=== PATIENT | male | born 1970 | race Caucasian/White ===

== ENCOUNTER 2017-08-21 19:38 | Inpatient (IN) ==
[2017-08-21] MEDS ORDERED: SALINE FLUSH 10ml SYRINGE IVF PRN (19:39)
--- NOTE | 2017-08-21 19:40 | Emergency Department Report ---
Psych HPI - General Stated Complaint: Overdose Time Seen by Provider: 08/21/17 19:39 Source: patient, EMS Mode of arrival: ambulatory Limitations: no limitations - History of Present Illness HPI Narrative: Patient has significant schizoaffective disorder bipolar type depression. History of suicide attempts in the past. Patient spent March, April, and May inpatient [facility], and then was transferred to a [facility] here in [place]. Patient had his lithium dose "recently reduced," and since that time has been having more significant audible hallucinations, and tonight, patient had finally had enough, and took medication to try to kill himself.. Past several days. Tonight the patient took a total of 1100 mg of Seroquel, and [id number] mg of Soma. This all happened at 6:45 PM, and by 7:15 EMS was activated charcoal. Currently the patient states that he just feels shaky but the auditory hallucinations have resolved, and patient does not want to harm himself currently.. - Related Data Home Medications Medication Instructions Recorded Confirmed Benztropine Mesylate 0.5 mg PO BID 08/21/17 08/21/17 Cholecalciferol (Vitamin D3) 1,000 unit PO DAILY 08/21/17 08/21/17 [Vitamin D3] Cyanocobalamin (Vitamin B-12) 1,000 mcg PO DAILY 08/21/17 08/21/17 [Vitamin B-12] Lamotrigine [Lamictal] 100 mg PO BID 08/21/17 08/21/17 Parker Strip Carbonate [Parker Strip 450 mg PO DAILY 08/21/17 08/21/17 Carbonate ER] Methocarbamol [Robaxin] 500 mg PO QID PRN 08/21/17 08/21/17 Quetiapine [Seroquel] 100 mg PO HS 08/21/17 08/21/17 hydrOXYzine pamoate [Vistaril] 1 cap PO BID 08/21/17 08/21/17 lamoTRIgine [Lamotrigine] 25 mg PO BID 08/21/17 08/21/17 Allergies Allergy/AdvReac Type Severity Reaction Status Date / Time No Known Allergies Allergy Verified 08/21/17 20:00 Review of Systems All systems: reviewed and negative except as stated PFSH Depression Schizoaffective, Bipolar type, with psychotic features Hx of suicide attempts in past. Spent 3mo in [place] HTN - Social History Smoking status: Never smoker Substance use type: does not use Alcohol intake frequency: does not drink Physical Exam - Limitations Limitations: no limitations - General General appearance: alert - Normal Exams: Head:: Normocephalic without trauma Eyes:: Pupils are PERRLA w/ EOMI, No scleral icterus, irritation, or foreign bodies noted ENMT:: No facial trauma, nasal exudates, pharyngeal erythema, or exudates are noted Neck:: Full range of motion, without adenopathy, JVD, bruits or thyromegaly Chest/Respirations:: Clear all ferraro, with good airflow, and symmetry bilaterally Cardiovascular:: Regular rate and rhythm, without murmur or gallop, Pulses 2+ all extremities, capillary refill, <2 seconds all extremities Abdomen:: Bowel sounds positive, soft, non-tender, non-distended, no hepatosplenomegaly, masses or bruits noted Lymphatic:: No lymphadenopathy, or lymphedema noted Musculoskeletal:: No tenderness, or deformity noted, good range of motion, all extremities Integumentary:: No rashes, hives, or bruising noted, hair and nails, without abnormality Neurological:: Patient is alert, and oriented, cranial nerves, motor/sensory/ cerebellar, exams w/o gross deficits, to observation - Psychiatric Psychiatric exam: Present: other (flat affect, mildly shaky, but cooperative) Course Vital Signs Temperature 97.4 F 08/21/17 19:38 Pulse Rate 132 H 08/21/17 19:38 Respiratory Rate 16 08/21/17 19:38 Blood Pressure 114/61 08/21/17 19:38 Pulse Oximetry 96 08/21/17 19:38 Temperature 97.4 F 08/21/17 19:38 Pulse Rate 132 H 08/21/17 19:38 Respiratory Rate 16 08/21/17 19:38 Blood Pressure 114/61 08/21/17 19:38 Pulse Oximetry 96 08/21/17 19:38 Psych - MDM Narrative Medical decision making narrative: EKG shows sinus tachycardia without ischemia or infarction. CBC, CMP normal, salicylates and Tylenol negative, EtOH negative, Drug screen positive only for tricyclics. Patient has remained stable, although tachycardic in the ER. Case is discussed with Dr. Edward Vela, patient be admitted to ICU for suicide attempt with Seroquel and Soma overdose. After I discussed the case with Dr. Vela, patient was somewhat agitated as he felt like he had heard people talking about him and the nurse's desk, speaking disrespectful things about him, and that we were angry with him. In reality we were not speaking about the patient, and this appears to be his paranoia associated with his schizoaffective. I reassured the patient that in no way meant disrespecting him, but that we had to share his medical details admitting physician, and although he would like to go home, he was instructed this was not an option due to his suicide attempt. Patient states that he except that explanation and will "wait patiently." - Lab Data Result diagrams: 08/21/17 20:09 08/21/17 20:09 Lab Results 08/21/17 08/21/17 08/21/17 Range/Units 20:00 20:00 20:09 WBC 9.3 (4.5-11.0) T/MM3 RBC 5.36 (4.50-5.90) M/MM3 Hgb 16.9 (13.5-17.5) GM/DL Hct 50.1 (41-53) % MCV 93.5 (80-100) UM3 MCH 31.5 (26-34) UUG MCHC 33.7 (31-37) GM/DL RDW Std Deviation 45.0 (36.9-50.2) FL Plt Count 211 (130-400) T/MM3 MPV 11.3 (9.4-12.4) UM3 Immature Gran % (Auto) 0.3 (0.0-0.5) % Neut % (Auto) 56.8 (33-66) % Lymph % (Auto) 32.7 (23-45) % [place] % (Auto) 5.7 (0-9.0) % Eos % (Auto) 3.6 (0-4) % Baso % (Auto) 0.9 (0-2) % Neut # (Auto) 5.3 (1.8-7.7) T/MM3 Lymph # (Auto) 3.0 (1-4.8) T/MM3 [place] # (Auto) 0.5 (0-0.8) T/MM3 Eos # (Auto) 0.3 (0-0.5) T/MM3 Baso # (Auto) 0.1 (0-0.2) T/MM3 Abs Immat Gran (auto) 0.03 (0.00-0.03) T/MM3 Turbidity (0-20) Sodium (134-144) MEQ/L Potassium (3.6-5) MEQ/L Chloride (98-107) MEQ/L Carbon Dioxide (22-30) MEQ/L Anion Gap (5-15) MEQ/L BUN (9-20) MG/DL Creatinine (0.8-1.5) MG/DL GFR Calculation BUN/Creatinine Ratio (6-26) RATIO Glucose (75-110) MG/DL Calculated Osmolality (261-280) MOSM/KG Calcium (8.4-10.2) MG/DL Total Bilirubin (0.20-1.30) MG/DL Icterus Index (0-7) AST (17-59) U/L ALT (21-72) U/L Alkaline Phosphatase (38-126) U/L Total Protein (6.3-8.2) G/DL Albumin (3.5-5.0) G/DL Globulin (2.4-3.6) G/DL Albumin/Globulin Ratio (1.1-2.2) RATIO Specimen Hemolysis (0-25) Ur Collection Type Urine, clean catch Urine Color Yellow (YELLOW) Urine Clarity Clear Urine pH 6.0 (5.0-8.0) Ur Specific Junction <=1.005 L (1.015-1.025) Urine Protein Negative (NEGATIVE) Urine Glucose (UA) Negative (NEGATIVE) Urine Ketones Negative (NEGATIVE) Urine Occult Blood Negative (NEGATIVE) Urine Nitrate Negative (NEGATIVE) Urine Bilirubin Negative (NEGATIVE) Urine Urobilinogen 0.2 (NORMAL) EU/DL Ur Leukocyte Esterase Negative (NEGATIVE) Urinalysis Comment Microscopic not ind. Salicylates (2-20) MG/DL Urine Opiates Screen Negative ng/mL Ur Oxycodone Screen Negative ng/mL Urine Methadone Screen Negative ng/mL Ur Propoxyphene Screen Negative ng/mL Acetaminophen (10-30) UG/ML Ur Barbiturates Screen Negative ng/mL U Tricyclic Antidepress Positive ng/mL Ur Phencyclidine Scrn Negative ng/mL Ur Amphetamines Screen Negative ng/mL U Methamphetamines Scrn Negative ng/mL U Benzodiazepines Scrn Negative ng/mL Urine Cocaine Screen Negative ng/mL U Cannabinoids Screen Negative ng/mL Alcohol, Quantitative (<10) MG/DL 08/21/17 Range/Units 20:09 WBC (4.5-11.0) T/MM3 RBC (4.50-5.90) M/MM3 Hgb (13.5-17.5) GM/DL Hct (41-53) % MCV (80-100) UM3 MCH (26-34) UUG MCHC (31-37) GM/DL RDW Std Deviation (36.9-50.2) FL Plt Count (130-400) T/MM3 MPV (9.4-12.4) UM3 Immature Gran % (Auto) (0.0-0.5) % Neut % (Auto) (33-66) % Lymph % (Auto) (23-45) % [place] % (Auto) (0-9.0) % Eos % (Auto) (0-4) % Baso % (Auto) (0-2) % Neut # (Auto) (1.8-7.7) T/MM3 Lymph # (Auto) (1-4.8) T/MM3 [place] # (Auto) (0-0.8) T/MM3 Eos # (Auto) (0-0.5) T/MM3 Baso # (Auto) (0-0.2) T/MM3 Abs Immat Gran (auto) (0.00-0.03) T/MM3 Turbidity < 20 (0-20) Sodium 145 H (134-144) MEQ/L Potassium 3.7 (3.6-5) MEQ/L Chloride 106 (98-107) MEQ/L Carbon Dioxide 25 (22-30) MEQ/L Anion Gap 14 (5-15) MEQ/L BUN 9.0 (9-20) MG/DL Creatinine 0.8 (0.8-1.5) MG/DL GFR Calculation 105 BUN/Creatinine Ratio 11 (6-26) RATIO Glucose 134 H (75-110) MG/DL Calculated Osmolality 280 (261-280) MOSM/KG Calcium 9.6 (8.4-10.2) MG/DL Total Bilirubin 0.40 (0.20-1.30) MG/DL Icterus Index < 2 (0-7) AST 24 (17-59) U/L ALT 34 (21-72) U/L Alkaline Phosphatase 72 (38-126) U/L Total Protein 8.0 (6.3-8.2) G/DL Albumin 4.6 (3.5-5.0) G/DL Globulin 3.4 (2.4-3.6) G/DL Albumin/Globulin Ratio 1.4 (1.1-2.2) RATIO Specimen Hemolysis < 15 (0-25) Ur Collection Type Urine Color (YELLOW) Urine Clarity Urine pH (5.0-8.0) Ur Specific Junction (1.015-1.025) Urine Protein (NEGATIVE) Urine Glucose (UA) (NEGATIVE) Urine Ketones (NEGATIVE) Urine Occult Blood (NEGATIVE) Urine Nitrate (NEGATIVE) Urine Bilirubin (NEGATIVE) Urine Urobilinogen (NORMAL) EU/DL Ur Leukocyte Esterase (NEGATIVE) Urinalysis Comment Salicylates < 1.0 L (2-20) MG/DL Urine Opiates Screen ng/mL Ur Oxycodone Screen ng/mL Urine Methadone Screen ng/mL Ur Propoxyphene Screen ng/mL Acetaminophen < 10 L (10-30) UG/ML Ur Barbiturates Screen ng/mL U Tricyclic Antidepress ng/mL Ur Phencyclidine Scrn ng/mL Ur Amphetamines Screen ng/mL U Methamphetamines Scrn ng/mL U Benzodiazepines Scrn ng/mL Urine Cocaine Screen ng/mL U Cannabinoids Screen ng/mL Alcohol, Quantitative <10 (<10) MG/DL Disposition Clinical Impression: Suicide attempt by multiple drug overdose Qualifiers: Encounter type: initial encounter Qualified Code(s): T50.902A - Poisoning by unspecified drugs, medicaments and biological substances, intentional self-harm , initial encounter Disposition: [facility] Condition: Stable Prescriptions: No Action lamoTRIgine [Lamotrigine] 25 mg PO BID Lamotrigine [Lamictal] 100 mg PO BID Benztropine Mesylate 0.5 mg PO BID Cyanocobalamin (Vitamin B-12) [Vitamin B-12] 1,000 mcg PO DAILY Methocarbamol [Robaxin] 500 mg PO QID PRN PRN Reason: Prn Orders Parker Strip Carbonate [Parker Strip Carbonate ER] 450 mg PO DAILY Quetiapine [Seroquel] 100 mg PO HS hydrOXYzine pamoate [Vistaril] 1 cap PO BID Cholecalciferol (Vitamin D3) [Vitamin D3] 1,000 unit PO DAILY - Seen By: physician
--- OUTSIDE RECORDS SUMMARY | 2017-08-21 19:46 | External Medical Summary ---
:1970 Author Name GENERATED, SYSTEM Care Team Providers Name Role Phone UNASSIGNED DOCTOR MD NEHA DOCTOR Primary Care Provider [phone] Reason For Visit Reason for Visit from 02/26/2017 12:01 PM:Pt Stated Reason for Adm : "I'm going insane."Reason for Visit from 02/22/2017 10:51 AM:Pt Stated Reason for Adm : "I'm going insane."Reason for Visit from 02/21/2017 10:20 PM:Pt Stated Reason for Adm : "I'm going insane." Chief Complaint UNSPECIFIED SCHIZOPHRENIA Social History Social History from 02/26/2017 12:01 PM:Tobacco Use? : Current Everyday SmokerSocial History from 02/22/2017 10:51 AM:Tobacco Use? : Current Everyday SmokerSocial History from 02/21/2017 10:20 PM:Tobacco Use? : Current Everyday Smoker Functional Status Functional Status from 02/26/2017 8:20 AM:LOC : AlertOriented To : Person,Place, Time,EventWeight Bearing Status : FullAssist Level : Independent# Assists : IndependentFunctional Status from 02/25/2017 8:32 PM:LOC : AlertOriented To : Person,Place,Time,EventWeight Bearing Status : FullAssist Level : Independent# Assists : IndependentFunctional Status from 02/25/2017 9:35 AM:LOC : AlertOriented To : Person,Place,Time,EventWeight Bearing Status : FullAssist Level : Independent# Assists : IndependentFunctional Status from 02/24/2017 9:08 PM:LOC : AlertOriented To : Person,Place,Time,EventWeight Bearing Status : FullAssist Level : Independent# Assists : IndependentFunctional Status from 2016 10:10 AM:LOC : AlertOriented To : Person,Place,Time,EventWeight Bearing Status : FullAssist Level : Independent# Assists : IndependentFunctional Status from 02/23/2017 9:42 PM:LOC : AlertOriented To : Person,Place,Time,EventWeight Bearing Status : FullAssist Level : Independent# Assists : IndependentFunctional Status from 02/23/2017 2:07 PM:LOC : AlertOriented To : Person,Place,Time,EventWeight Bearing Status : FullAssist Level : Independent# Assists : IndependentFunctional Status from 02/22/2017 8:25 PM:LOC : AlertOriented To : Person,Place,Time,EventWeight Bearing Status : FullAssist Level : Independent# Assists : IndependentFunctional Status from 02/22/2017 9:00 AM:LOC : AlertOriented To : Person,Place,TimeWeight Bearing Status : FullAssist Level : Independent# Assists : IndependentFunctional Status from 02/21/2017 10:20 PM:LOC : AlertOriented To : Person,Place,Time,EventWeight Bearing Status : FullAssist Level : Independent# Assists : Independent Vital Signs Hospital Vital Signs from 02/26/2017 8:48 AM:Weight : 196/ lbs,ozHeight : 5/8 ft, inHospital Vital Signs from 02/26/2017 6:20 AM:Height : 5/8 ft,inTemperature : 98.6 FPulse : 80Respirations : 16BP : 113/83Hospital Vital Signs from 02/25/2017 6 :33 AM:Height : 5/8 ft,inTemperature : 100.0 FPulse : 65Respirations : 18BP : 120/75Hospital Vital Signs from 02/24/2017 6:24 AM:Height : 5/8 ft,inTemperature : 98.2 FPulse : 91Respirations : 20BP : 120/77Hospital Vital Signs from 2016 6:28 AM:Height : 5/8 ft,inTemperature : 98.5 FPulse : 63Respirations : 18BP : 120/80Hospital Vital Signs from 02/22/2017 5:12 PM:Height : 5/8 ft, inTemperature : 100.7 FPulse : 58Respirations : 14BP : 113/55Hospital Vital Signs from 02/22/2017 7:56 AM:Height : 5/8 ft,inHospital Vital Signs from 2016 6:22 AM:Height : 5/8 ft,inTemperature : 98.8 FPulse : 74Respirations : 18BP : 120/84Hospital Vital Signs from 02/21/2017 10:20 PM:Weight : 91.8/ kgHeight : 5/8 ft,inHospital Vital Signs from 02/21/2017 9:53 PM:Weight : 91.8/ kgHeight : 5/8 ft,inTemperature : 98.2 FPulse : 91Respirations : 18BP : 125/94 Results Chemistry from 02/22/2017 7:15 AMGLUCOSE (FASTING)94 MG/DL (65-99 MG/DL) Problems Encounter Diagnosis Mood Disorder Status:Active.Additional Problems Dyspnea Comment:Problem resolved by [facility] [employer] upon Discharge, Status: Resolved. Encounters Encounter Diagnosis Mood Disorder Status:Active. Plan of Care Follow-up Appointments from 02/26/2017 12:01 PM:#1 Office appointment: : [facility] from 02/26/2017 11:20 AM:#1 Office appointment: : [facility] from 02/26/2017 10:34 AM:#1 Office appointment: : Per [facility] Procedures No relevant procedures performed. Immunizations No immunizations administered or ordered. Hospital Course Hospital Discharge Instructions How to care for yourself at home from 02/26/2017 12:01 PM:Discharge Activity : Activity as toleratedDischarge Diet : As before hospitalizationCall your doctor if: : Fever over 101 F or severe chills,Chest pain or other unexplained symptoms ,Tingling or numbness develops,A sudden increase or decrease in weight,You have persistent or worsening symptoms Allergies, Adverse Reactions, Alerts This section is passenger service representative of the current allergy information, at the time of the CCD generation. In the case of regeneration of the CCD, the allergy information may not reflect the state of known allergies at the time of the CCD' s subject visit. No Latex Allergy.No IV Contrast Allergy.No Known Drug Allergies. Medication It is the responsibility of the patient or patient passenger service representative to confirm the list of medicationswith either the patient's personal care provider or the patient's follow-up care provider to ensure the patient has an appropriate list of medications to take at home. Discharge medicationsNew medicationsdocusate sodium 100 mg Capsule, Ordered By: SALINAS BELLAMY, PAC Directions: 1 capsule oral daily PRN CONSTIPATION LORazepam 1 mg Tablet, Ordered By: SALINAS BELLAMY, PAC Directions: 1 tablet oral every eight hours PRN ANXIETY nicotine (polacrilex) (Nicorelief) 2 mg Gum, Ordered By: KARTHIK DAHL Directions: 1 gum oral daily PRN SMOKING CESSATION Additional Instructions: DO NOT GIVE IF PATIENT UNDER AGE 18 OR . Continued medicationsdoxepin 75 mg Capsule, Ordered By: KARTHIK DAHL Directions: 1 capsule oral daily at bedtime for insomnia DULoxetine (Cymbalta) 30 mg capsule,delayed release(DR/EC), Ordered By: KARTHIK DAHL Directions: 1 capsule oral daily for depression paliperidone (Invega) 9 mg tablet extended release 24hr, Ordered By: KARTHIK DAHL Directions: 1 tablet oral daily for psychosis Changed medicationslithium carbonate 450 mg Tablet Extended Release, Ordered By : KARTHIK DAHL Directions: 1 tablet oral daily with dinner for mood stabilization Stopped medicationsbusPIRone 15 mg Tablet Directions: 1 tablet oral twice a day for anxiety pantoprazole (ProTONIX) 40 mg tablet,delayed release (DR/EC) Directions: 1 tablet oral daily for dyspepsia benztropine 0.5 mg Tablet Directions: 1 tablet oral twice a day for EPS
--- OUTSIDE RECORDS SUMMARY | 2017-08-21 19:46 | External Medical Summary | Summary of Care ---
:1970 Author Name Vikas Pratt M.D. Address Unavailable Unavailable , Care Team Providers Name Role Phone Vikas Pratt M.D. Unavailable Unavailable Beny Pratt Unavailable Unavailable Unavailable Unavailable Unavailable Functional Status Functional Status Health Issues Name Dates Details Functional status health issues are not documented Status: Cognitive Status Health Issues Name Dates Details Cognitive status health issues are not documented Status: Problems Name Dates Details Dysuria (788.1, R30.0) Status: Active Rheumatoid arthritis (714.0, M06.9) Status: Active Hypercholesterolemia (272.0, E78.00) Status: Active Hypertension, essential, benign (401.1, I10) Status: Active Schizoaffective disorder (295.70, F25.9) Status: Active Bipolar disorder (296.80, F31.9) Status: Active Medications Name Dates Details DULoxetine HCl - 30 MG Oral Capsule Delayed Release Particles TAKE 1 CAPSULE Every morning Refills: 0 Start 13-Jun-2016 Active DULoxetine HCl - 60 MG Oral Capsule Delayed Release Particles TAKE 1 CAPSULE AT BEDTIME. Refills: 0 Start 13-Jun-2016 Active HydrOXYzine Pamoate 25 MG Oral Capsule TAKE 1 CAPSULE 1-3 TIMES DAILY. Refills: 0 Start 13-Jun-2016 Active Haloperidol 10 MG Oral Tablet TAKE 1 TABLET TWICE DAILY. Refills: 0 Start 13-Jun-2016 Active Benztropine Mesylate 1 MG Oral Tablet TAKE 2 TABLET Twice daily Refills: 0 Start 13-Jun-2016 Active Lisinopril 10 MG Oral Tablet TAKE 1 TABLET Every morning for BP Quantity: 1 Refills: 0 Beny Pratt M.D. K Start 13-Jun-2016 Active 45 Tablet Bottle Allergies and Adverse Reactions Name Dates Details No Known Drug Allergies (Allergy) Status: Active Past Medical History Name Dates Details History of colonic polyps (V12.72, Z86.010) Status: Resolved History of peptic ulcer (V12.71, Z87.11) Status: Resolved Procedures Procedure Dates Details Hep C Virus Antibody [id number] Ordered: 13-Jun-2016 Immunization Name Dates Details Immunizations not documented Family History uncle Name Dates Details Family history of Melanoma (172.9, C43.9) Status: Active Mother Name Dates Details Family history of hypertension (V17.49, Z82.49) Status: Active Family history of diabetes mellitus (V18.0, Z83.3) Status: Active Family history of hyperlipidemia (V18.19, Z83.49) Status: Active Family history of Melanoma (172.9, C43.9) Status: Active Social History Name Dates Details - Status: Smoking Status Name Dates Details Current every day smoker Vital Signs Date Test Result Details 13-Jun-2016 11:14 BP Systolic 146 mm[Hg] Status: Comments: Location: ; Position: BP Diastolic 94 mm[Hg] Status: Comments: Location: ; Position: Heart Rate 104 /min Status: Comments: Location: ; Height 68 in Status: Weight 220 lb Status: Body Mass Index Calculated 33.45 kg/m2 Status: Body Surface Area Calculated 2.13 m2 Status: Results Date Description Value Details 13-Jun-2016 11:58 HEMOGRAM 7305 Comments: Fastin hours WBC 11.1 K/uL (Above high threshold) Range: 4.5-11.0 RBC 5.37 mil/uL Range: 4.20-5.40 HGB 17.9 g/dL Range: 14.0-18.0 HCT 50.4 % Range: 42.0-53.0 MCV 93.7 fL Range: 80.0-99.0 MCH 33.3 pg (Above high threshold) Range: 27.3-32.5 MCHC 35.5 % Range: 32.0-36.0 PLATELETS 226 K/uL Range: 150-400 12:00 Urinalysis, Reflex to Microscopic or Culture PRN Comments: Fastin hours 8005 pH 6.0 Range: 5.0-7.5 SP GRAVITY <=1.005 (Abnormal) Range: 1.010-1.030 APPEARANCE CLEAR Range: Clear COLOR YELLOW Range: Straw-Yellow PROTEIN NEGATIVE mg/dL Range: Negative-Trace GLUCOSE NEGATIVE mg/dL Range: Negative KETONE NEGATIVE mg/dL Range: Negative BILIRUB NEGATIVE Range: Negative BLOOD NEGATIVE Range: Negative UROBIL 0.2 EU/dL Range: 0.2-1.0 NITRITE NEGATIVE Range: Negative LEUK NEGATIVE Range: Negative 12:32 BASIC METABOLIC PROFILE 1210 Comments: Fastin hours SODIUM 138 mmol/L Range: 133-144 POTASSIUM 3.5 mmol/L Range: 3.5-5.1 CHLORIDE 100 mmol/L Range: 98-110 CARBON DIOXIDE 27.9 mmol/L Range: 23.0-33.0 ANION GAP 10 mmol/L Range: 6-16 BUN 3 mg/dL (Below low Range: 7-18 threshold) CREATININE, SERUM 0.78 mg/dL Range: 0.70-1.30 EST GFR, >60 ml/min Range: >60 EST GFR, NON-AFR HUNGARIAN >60 ml/min Range: >60 Comments: EST GFR is reported in ml/min per 1.73 m2 of body surface area. ----- BUN:CREATININE RATIO 4 GLUCOSE 83 mg/dL Range: 70-100 CALCIUM 9.1 mg/dL Range: 8.5-10.1 12:32 LIPID PROFILE 1184 Comments: Fastin hours CHOLESTEROL 182 mg/dL Range: <200 TRIGLYCERIDES 151 mg/dL Range: 30-200 HDL Cholesterol 37 mg/dL (Below low threshold) Range: >39 NON HDL CHOLESTEROL 145 CARDIAC RSK FACTOR 4.9 units Range: 4.4-5.0 LDL - CALCULATED 115 mg/dL Range: 0-130 Plan of Care Name Dates Details Planned Observations Planned Goals not documented Planned Encounters Appointment; Provider: Beny Pratt M.D. On 27-Jun-2016 09:00 Interventions Provided Medication ChangesLisinopril 10 MG Oral Tablet - StartLabs/Procedures/Imaging Hep C Virus Antibody [id number]; To be Done: 13 Jun 2016 Instructions Name Dates Details Instructions not documented Encounters Appointment; Beny Pratt M.D. On 13-Jun-2016 Encounter Diagnosis: Problem not documented 11:15
--- OUTSIDE RECORDS SUMMARY | 2017-08-21 19:46 | External Medical Summary ---
:1970 Author Name GENERATED, SYSTEM Care Team Providers Name Role Phone UNASSIGNED DOCTOR MD NEHA DOCTOR Primary Care Provider [phone] Reason For Visit Chief Complaint RECTAL BLEEDING Social History Functional Status Vital Signs Results Chemistry from 01/19/2017 11:03 [id number] MMOL/L (136-145 MMOL/L) POTASSIUM4.0 MMOL/L (3.5-5.1 MMOL/L) ELKQLGJU920 MMOL/L (98-107 MMOL/L) AWP547.2 MMOL/L (21.0-32.0 MMOL/L) *ANION GAP6.8 MMOL/L L (8.0-16.0 MMOL/L) BUN8 MG/DL (7-18 MG/DL) CREATININE0.93 MG/DL (0.70-1.30 MG/DL) *BUN/CREATININE RATIO8.6 L (9.1-17.0 ) UFFOCYL101 MG/DL H (65-99 MG/DL) *GFR EST NON AFR [place]>90 ML/MIN (Reference Range: not available) *GFR EST AFR AMER>90 ML/MIN (Reference Range: not available) CALCIUM8.6 MG/DL (8.5-10.1 MG/DL) BILIRUBIN TOTAL0.20 MG/DL (0.20-1.00 MG/DL) TOTAL PROTEIN6.6 GM/DL (6.4-8.2 GM/DL) ALBUMIN3.5 GM/DL (3.4-5.0 GM/DL) *GLOBULIN3.1 GM/DL (2.3-3.5 GM/DL) *A/G RATIO1.1 MG/DL L (1.5-2.2 MG/DL) ALK KEBB052 U/L H (46-116 U/L) ALT (SGPT)33 U/L (14-59 U/L) AST (SGOT)19 U/L (15-37 U/L)Hematology from 01/19/2017 11:03 PMWBC8.3 X10e3/UL ( 3.6-11.2 X10e3/UL) RBC5.01 X10e6/UL (4.06-5.63 X10e6/UL) GIEENBFFQY15.4 G/DL (12.5-16.3 G/DL) VUYDAHVTUE09.7 % (36.7-47.1 %) *MCV91.2 FL (80.0-100.0 FL) *MCH30.8 PG (27.0-33.0 PG) *MCHC33.7 G/DL (32.0-36.0 G/DL) *RDW13.0 % (12.3-17.0 %) UMDECFSF569 X10e3/UL (159-386 X10e3/UL) *MPV9.6 FL (7.4-10.4 FL) AUTOMATED DIFFPERFORMED (Reference Range: not available) SEGS55.9 % (Reference Range: not available) *QEKSNQWSLHW82.5 % (Reference Range: not available) *MONOCYTES7.1 % (Reference Range: not available) *EOSINOPHILS4.7 % (Reference Range: not available) *BASOPHILS0.8 % (Reference Range: not available) *ABSOLUTE NEUTROPHILS4.60 X10e3/UL (1.80-7.80 X10e3/UL) *ABSOLUTE LYMPHOCYTES2.60 X10e3/UL (1.00-3.00 X10e3/UL) *ABSOLUTE MONOCYTES0.60 X10e3/UL (0.30-1.00 X10e3/UL) *ABSOLUTE EOSINOPHILS0.40 X10e3/UL (0.00-0.50 X10e3/UL) *ABSOLUTE BASOPHILS0.10 X10e3/UL (0.00-0.20 X10e3/UL)Coagulation from 01/19/2017 11:02 PM*PROTHROMBIN TIME10.9 SECONDS (9.4-11.5 SECONDS) *INR1.0 (0.9-1.1 )Body Fluids from 01/19/2017 10:45 PMFECAL OCCULT BLOOD 1 ( Hemoccult)POSITIVE A (NEGATIVE ) Problems Encounter Diagnosis No relevant problems exist. Additional Problems Dyspnea Comment:Problem resolved by [facility] Workflow upon Discharge, Status: Resolved. Encounters Encounter Diagnosis No relevant problems exist. Plan of Care Procedures No relevant procedures performed. Immunizations No immunizations administered or ordered. Hospital Course Hospital Discharge Instructions Allergies, Adverse Reactions, Alerts This section is vendor representatives of the current allergy information, at the time of the CCD generation. In the case of regeneration of the CCD, the allergy information may not reflect the state of known allergies at the time of the CCD' s subject visit. Latex Allergy has not been assessed.IV Contrast Allergy has not been assessed.No Known Drug Allergies. Medication Medication reconciliation has not been performed.
--- OUTSIDE RECORDS SUMMARY | 2017-08-21 19:46 | External Medical Summary ---
:1970 Author Name GENERATED, SYSTEM Care Team Providers Name Role Phone UNASSIGNED DOCTOR MD NEHA DOCTOR Primary Care Provider [phone] Reason For Visit Chief Complaint INSOMNIA Social History Functional Status Vital Signs Results Chemistry from 01/23/2017 5:50 AM*COCAINENEGATIVE NG/ML (NEG <150 NG/ML) *PCPNEGATIVE NG/ML (NEG <25 NG/ML) *CANNABINOIDSNEGATIVE MG/DL (NEG <50 MG/DL) *BENZODIAZEINENEGATIVE NG/ML (NEG <200 NG/ML) *METHAMPHETAMINE/AMPHETAMINENEGATIVE NG/ML (NEG <500 NG/ML) *BARBITURATESNEGATIVE NG/ML (NEG <200 NG/ML) *OPIATESNEGATIVE NG/ML (NEG <300 NG/ML)Chemistry from 01/23/2017 5:37 [id number] MMOL/L (136-145 MMOL/L) POTASSIUM3.9 MMOL/L (3.5-5.1 MMOL/L) GZZCXNOB040 MMOL/L (98-107 MMOL/L) MDZ373.5 MMOL/L (21.0-32.0 MMOL/L) *ANION GAP7.5 MMOL/L L (8.0-16.0 MMOL/L) BUN9 MG/DL (7-18 MG/DL) CREATININE0.82 MG/DL (0.70-1.30 MG/DL) *BUN/CREATININE RATIO11.0 (9.1-17.0 ) ECRPOJH820 MG/DL H (65-99 MG/DL) *GFR EST NON AFR [place]IZEN [place]>90 ML/MIN (Reference Range: not available) *GFR EST AFR AMER>90 ML/MIN (Reference Range: not available) CALCIUM8.8 MG/DL (8.5-10.1 MG/DL) BILIRUBIN TOTAL0.60 MG/DL (0.20-1.00 MG/DL) TOTAL PROTEIN7.3 GM/DL (6.4-8.2 GM/DL) ALBUMIN3.7 GM/DL (3.4-5.0 GM/DL) *GLOBULIN3.6 GM/DL H (2.3-3.5 GM/DL) *A/G RATIO1.0 MG/DL L (1.5-2.2 MG/DL) ALK WPNX561 U/L (46-116 U/L) ALT (SGPT)28 U/L (14-59 U/L) AST (SGOT)19 U/L (15-37 U/L) TSH1.256 UIU/ML (0.340-4.820 UIU/ML) ALCOHOL<0.003 GM/DL (Reference Range: not available) ACETAMINOPHEN<2 MCG/ML L (10-30 MCG/ML) LITHIUM0.3 MMOL/L L (0.6-1.2 MMOL/L) SALICYLATE5.2 MG/DL (2.8-20.0 MG/DL)Hematology from 01/23/2017 5:37 AMWBC7.9 X10e3 /UL (3.6-11.2 X10e3/UL) RBC5.18 X10e6/UL (4.06-5.63 X10e6/UL) UAJHMADSQI56.7 G/DL H (12.5-16.3 G/DL) QZEICADVGX25.4 % H (36.7-47.1 %) *MCV93.5 FL (80.0-100.0 FL) *MCH32.2 PG (27.0-33.0 PG) *MCHC34.5 G/DL (32.0-36.0 G/DL) *RDW13.7 % (12.3-17.0 %) *RDWSD44.6 (37.1-47.8 ) RLRFWJTF088 X10e3/UL (159-386 X10e3/UL) *MPV9.8 FL (7.4-10.4 FL) AUTOMATED DIFFPERFORMED (Reference Range: not available) SEGS56.2 % (Reference Range: not available) *KFATGIGEFUP76.0 % (Reference Range: not available) *MONOCYTES9.1 % (Reference Range: not available) *EOSINOPHILS3.9 % (Reference Range: not available) *BASOPHILS0.8 % (Reference Range: not available) *ABSOLUTE NEUTROPHILS4.40 X10e3/UL (1.80-7.80 X10e3/UL) *ABSOLUTE LYMPHOCYTES2.40 X10e3/UL (1.00-3.00 X10e3/UL) *ABSOLUTE MONOCYTES0.70 X10e3/UL (0.30-1.00 X10e3/UL) *ABSOLUTE EOSINOPHILS0.30 X10e3/UL (0.00-0.50 X10e3/UL) *ABSOLUTE BASOPHILS0.10 X10e3/UL (0.00-0.20 X10e3/UL)Urinalysis from 01/23/2017 5: 50 AM*URINE COLORSTRAW (STRAW/YELL/DK YELL ) *URINE APPEARANCECLEAR (CLEAR ) URINE PH6.0 (5.0-8.0 ) URINE SPECIFIC GRAVITY<1.005 (<=1.005->=1.030 ) *URINE GLUCOSENEGATIVE MG/DL (NEGATIVE MG/DL) *URINE BILIRUBINNEGATIVE (NEGATIVE ) *URINE KETONESNEGATIVE MG/DL (NEGATIVE MG/DL) *URINE BLOODNEGATIVE (NEGATIVE ) *URINE PROTEINNEGATIVE MG/DL (NEGATIVE MG/DL) *URINE UROBILINOGEN0.2 EU/DL (0.2-1.0 EU/DL) *URINE NITRITESNEGATIVE (NEGATIVE ) *URINE LEUKOCYTESNEGATIVE (NEGATIVE ) Problems Encounter Diagnosis No relevant problems exist. Additional Problems Dyspnea Comment:Problem resolved by [facility] Workflow upon Discharge, Status: Resolved. Encounters Encounter Diagnosis No relevant problems exist. Plan of Care Procedures No relevant procedures performed. Immunizations No immunizations administered or ordered. Hospital Course Hospital Discharge Instructions Allergies, Adverse Reactions, Alerts This section is transportation services representative of the current allergy information, at [...]
--- OUTSIDE RECORDS SUMMARY | 2017-08-21 19:46 | External Medical Summary ---
:1970 Author Name GENERATED, SYSTEM Care Team Providers Name Role Phone UNASSIGNED DOCTOR MD NEHA DOCTOR Primary Care Provider [phone] Reason For Visit Chief Complaint TOOTH PAIN Social History Functional Status Vital Signs Results Problems Encounter Diagnosis No relevant problems exist. Additional Problems Dyspnea Comment:Problem resolved by [facility] Workflow upon Discharge, Status: Resolved. Encounters Encounter Diagnosis No relevant problems exist. Plan of Care Procedures No relevant procedures performed. Immunizations No immunizations administered or ordered. Hospital Course Hospital Discharge Instructions Allergies, Adverse Reactions, Alerts Latex Allergy has not been assessed.IV Contrast Allergy has not been assessed.No Known Drug Allergies. Medication Medication reconciliation has not been performed.
--- OUTSIDE RECORDS SUMMARY | 2017-08-21 19:46 | External Medical Summary | Summary of Care ---
:1970 Author Name Isra Kan, Shayy Elizabeth Address [address] [place], [place] [id number] Care Team Providers Name Role Phone Isra Kan, Shayy Elizabeth Unavailable Unavailable Vikas Pratt M.D. Unavailable Unavailable Glenn Dhaliwal Unavailable Unavailable Unavailable Unavailable Unavailable Functional Status Functional Status Health Issues Name Dates Details Functional status health issues are not documented Status: Cognitive Status Health Issues Name Dates Details Cognitive status health issues are not documented Status: Problems Name Dates Details Hypercholesterolemia (272.0, E78.00) Status: Active Low HDL (under 40) (272.5, E78.6) Status: Active Hypertension, essential, benign (401.1, I10) Status: Active Low back pain (724.2, M54.5) Status: Active Bipolar disorder (296.80, F31.9) Status: Active Rheumatoid arthritis (714.0, M06.9) Status: Active Schizoaffective disorder (295.70, F25.9) Status: Active Medications Name Dates Details DULoxetine [...] 10 MG Oral Tablet TAKE 1 TABLET BY MOUTH EVERY MORNING BLOOD PRESSURE Quantity: 28 Refills: 0 Beny Pratt M.D. Start 05-Jan-2017 Active Ibuprofen 600 MG Oral Tablet TAKE 1 TABLET 3 TIMES DAILY WITH FOOD NEEDED. Quantity: 1 Refills: 2 Beny Pratt M.D. Start 27-Jun-2016 Active 30 Tablet Bottle Allergies and Adverse Reactions Name Dates Details No Known Drug Allergies (Allergy) Status: Active Past Medical History Name Dates Details History of colonic polyps (V12.72, Z86.010) Status: Resolved History of peptic ulcer (V12.71, Z87.11) Status: Resolved Procedures Procedure Dates Details CBC w/ Auto Diff 7150 Ordered: Comprehensive Metabolic Panel 1212 Ordered: LIPID PROFILE 1184 Ordered: ERYTHROCYTE SED RATE 7800 Ordered: C REACTIVE PROTEIN, CRP 2030 Ordered: RHEUMATOID FACTOR, RA, Serum 2015 Ordered: LITHIUM 1162 Ordered: Immunization Name Dates Details Influenza on: 20-May-2016 Family History uncle Name Dates Details Family [...] smoker Vital Signs Date Test Result Details 10:09 BP Systolic 136 mm[Hg] Status: Comments: Location: ; Position: BP Diastolic 84 mm[Hg] Status: Comments: Location: ; Position: Heart Rate 119 /min Status: Comments: Location: ; Weight 205 lb Status: Physical Findings 98 Status: Comments: O2 Saturation Body Mass Index Calculated 31.17 kg/m2 Status: Body Surface Area Calculated 2.07 m2 Status: Results Date Description Value Details Results not documented Plan of Care Name Dates Details Planned Observations Planned Goals not documented Instructions Name Dates Details Instructions not documented Encounters Appointment; Beny Pratt M.D. On 26-Jul-2016 Encounter Diagnosis: Problem not documented 08:00 Appointment; Beny Pratt M.D. On 27-Jun-2016 Encounter Diagnosis: Problem not documented 09:00 Appointment; Beny Pratt M.D. On 13-Jun-2016 Encounter Diagnosis: Problem not documented 11:15
--- OUTSIDE RECORDS SUMMARY | 2017-08-21 19:46 | External Medical Summary ---
:1970 Author Organization [employer] Care Team Providers Name Role Phone Destiney Patterson Provider Role Unavailable Allergies No Known Allergies Problems Problem Type Condition ICD-9 Code Onset Dates Condition Status Problem Hyperlipidemia 272.4 Active Problem Bipolar 1 disorder, mixed 296.60 Active Problem Smoker 305.1 Active Problem Obesity, unspecified 278.00 Active Problem Colon polyps 211.3 Active Problem Rheumatoid arthritis 714.0 Active Problem Asthma 493.90 Active Medications No Known Medications Results No Known Results Summary Purpose [employer] Submission
--- OUTSIDE RECORDS SUMMARY | 2017-08-21 19:46 | External Medical Summary ---
:1970 Author Name GENERATED, SYSTEM Care Team Providers Name Role Phone UNASSIGNED DOCTOR MD NEHA DOCTOR Primary Care Provider [phone] Reason For Visit Chief Complaint HEADACHE Social History Functional Status Vital Signs Results DX Radiology from 11/25/2016 9:18 PMHIP RIGHT 2 VIEWS WITH PELVISHistory: R hip pain . 46 y/o M c/o right hip pain onset 3 days [employer]. Pt reports he has rheumatoid arthritis. He was moving to stuff and thinks he over did it. Also c/o chronic intermittent headache, loss of appetite, diarrhea, cough. No nausea vomiting, SOB, abd pain, chest pain, edema. Pt also reports he threw out all of his medications when he got mad Technique: Single AP view the pelvis and two views of the right hip were obtained. Priors: None. Findings: There is no acute fracture. The hip is in normal alignment. There are no significant degenerative changes. Impression: No acute osseous abnormality. Electronically signed by: Charla Schilling MD Dictated: 11/26/2016 11:56 (Reference Range: not available) CT Scan from 11/25/2016 9:34 PMCT CEREBRAL W/O CONTRASTHistory: resendiz . 46 y/o M c/o right hip pain onset 3 days [employer] ATT[employer]. Pt reports he has rheumatoid arthritis. He was moving to stuff and thinks he over did it. Also c/o chronic intermittent headache, loss of appetite, diarrhea, cough. No nausea vomiting, SOB, abd pain, chest pain, edema. Pt also reports he threw out all of his medications when he got mad. Priors: None. Findings: Ventricles and Extra axial spaces: Normal in size and morphology for the patient's age. Hemorrhage: None. Cerebral parenchyma: Normal. Mass effect/midline shift: None. Brainstem/Cerebellum: Normal. Calvarium: Normal. Visualized Paranasal sinuses/Mastoids: There is mild mucosal thickening within the bilateral frontal, ethmoid, sphenoid sinuses with small amount of fluid within the left sphenoid and left frontal sinuses. Impression: No acute intracranial abnormality. Mild infectious/inflammatory changes of the sinuses, as described above. Electronically signed by: Charla Schilling MD Dictated: 11/26/2016 11:04 (Reference Range: not available) Problems Encounter Diagnosis No relevant problems exist. Additional Problems Dyspnea Comment:Problem resolved by [facility] Workflow upon Discharge, Status: Resolved. Encounters Encounter Diagnosis No relevant problems exist. Plan of Care Procedures No relevant procedures performed. Immunizations No immunizations administered or ordered. Hospital Course Hospital Discharge Instructions Allergies, Adverse Reactions, Alerts This section is customer relations representative of the current allergy information, at [...]
--- OUTSIDE RECORDS SUMMARY | 2017-08-21 19:47 | External Medical Summary ---
:1970 Author Name GENERATED, SYSTEM Care Team Providers Name Role Phone UNASSIGNED DOCTOR MD NEHA DOCTOR Primary Care Provider [phone] Reason For Visit Chief Complaint RT ARM INJURY Social History Functional Status Vital Signs Results Problems Encounter Diagnosis No relevant problems exist. Additional Problems Dyspnea Comment:Problem resolved by [facility] Workflow upon Discharge, Status: Resolved. Encounters Encounter Diagnosis No relevant problems exist. Plan of Care Procedures No relevant procedures performed. Immunizations No immunizations administered or ordered. Hospital Course Hospital Discharge Instructions Allergies, Adverse Reactions, Alerts This section is workforce services representative of the current allergy information, [...]
--- OUTSIDE RECORDS SUMMARY | 2017-08-21 19:47 | External Medical Summary ---
:1970 Author Name GENERATED, SYSTEM Care Team Providers Name Role Phone UNASSIGNED DOCTOR MD NEHA DOCTOR Primary Care Provider [phone] Reason For Visit Chief Complaint CHRONIC RHEUMATOID ARTHRITIS PAIN Social History Functional Status Vital Signs Results Problems Encounter Diagnosis No relevant problems exist. Additional Problems Dyspnea Comment:Problem resolved by [facility] Workflow upon Discharge, Status: Resolved. Encounters Encounter Diagnosis No relevant problems exist. Plan of Care Procedures No relevant procedures performed. Immunizations No immunizations administered or ordered. Hospital Course Hospital Discharge Instructions Allergies, Adverse Reactions, Alerts This section is technical sales representatives of the current allergy information, at [...]
--- OUTSIDE RECORDS SUMMARY | 2017-08-21 19:47 | External Medical Summary | Summary of Care ---
[...] not documented Status: Problems Name Dates Details Rheumatoid arthritis (714.0, M06.9) Status: Active Hypercholesterolemia (272.0, E78.00) Status: Active Schizoaffective disorder (295.70, F25.9) Status: Active Bipolar disorder (296.80, F31.9) Status: Active Low HDL (under 40) (272.5, E78.6) Status: Active Hypertension, essential, benign (401.1, I10) Status: Active Low back pain (724.2, M54.5) Status: Active Medications Name Dates Details DULoxetine [...] Every morning for BP Quantity: 1 Refills: 5 SantaBeny galvan M.D. Start 13-Jun-2016 Active 30 Tablet Bottle Ibuprofen 600 MG Oral Tablet TAKE 1 [...] Z87.11) Status: Resolved Procedures Procedure Dates Details Procedures not documented Immunization Name Dates Details Influenza on: 20-May-2016 [...] smoker Vital Signs Date Test Result Details 26-Jul-2016 08:23 BP Systolic 122 mm[Hg] Status: Comments: Location: ; Position: BP Diastolic 84 mm[Hg] Status: Comments: Location: ; Position: 26-Jul-2016 08:01 BP Systolic 138 mm[Hg] Status: Comments: Location: ; Position: BP Diastolic 96 mm[Hg] Status: Comments: Location: ; Position: Heart Rate 92 /min Status: Comments: Location: ; Weight 215 lb Status: Body Mass Index Calculated 32.69 kg/m2 Status: Body Surface Area Calculated 2.11 m2 Status: 27-Jun-2016 09:00 BP Systolic 130 mm[Hg] Status: Comments: Location: LUE; Position: Sitting BP Diastolic 88 mm[Hg] Status: Comments: Location: LUE; Position: Sitting Heart Rate 84 /min Status: Weight 218 lb Status: Body Mass Index Calculated 33.15 kg/m2 Status: Body Surface Area Calculated 2.12 m2 Status: Results Date Description Value Details Results not documented Plan of Care Name Dates Details Planned Observations Planned Goals not documented Planned Encounters Appointment; Provider: Beny Pratt M.D. On 24-Oct-2016 08:00 Interventions Provided Medication ChangesIbuprofen 600 MG Oral Tablet - Renew Instructions Name Dates Details Instructions not documented Encounters Appointment; Beny Pratt M.D. On 27-Jun-2016 Encounter Diagnosis: Problem not documented 09:00 Appointment; Beny Pratt M.D. On 13-Jun-2016 Encounter Diagnosis: Problem not documented 11:15
--- OUTSIDE RECORDS SUMMARY | 2017-08-21 19:47 | External Medical Summary | Summary of Care ---
[...] not documented Status: Problems Name Dates Details Hypertension, essential, benign (401.1, I10) Status: Active Dysuria (788.1, R30.0) Status: Active Medications Name Dates Details DULoxetine [...] Quantity: 1 Refills: 0 Beny Pratt M.D. Vikas Start 13-Jun-2016 Active 45 Tablet Bottle Allergies and Adverse Reactions Name Dates Details No Known Drug Allergies (Allergy) Status: Active Procedures Procedure Dates Details Hep C Virus Antibody [id number] Ordered: 13-Jun-2016 Immunization Name Dates Details Immunizations not documented Social History Smoking Status Name Dates Details Unknown if ever smoked Vital Signs Date Test Result Details 13-Jun-2016 [...] >60 ml/min Range: >60 EST GFR, NON-AFR DUTCH >60 ml/min Range: >60 Comments: EST GFR [...] Pratt M.D. On 27-Jun-2016 09:00 Interventions Provided Labs/Procedures/ImagingBASIC METABOLIC PROFILE 1210; Done: 13Jun2016 11: 53AMHEMOGRAM 7305; Done: 13Jun2016 11:53AMLIPID PROFILE 1184; Done: 13Jun2016 11 :53AMUrinalysis, Reflex to Microscopic or Culture PRN [id number]; Done: 13Jun2016 11: 54AM Instructions Name Dates Details Instructions not documented Encounters Appointment; Beny Pratt M.D. On 13-Jun-2016 Encounter Diagnosis: Problem not documented 11:15
--- OUTSIDE RECORDS SUMMARY | 2017-08-21 19:47 | External Medical Summary ---
:1970 Author Name GENERATED, SYSTEM Care Team Providers Name Role Phone UNASSIGNED DOCTOR MD NEHA DOCTOR Primary Care Provider [phone] Reason For Visit Chief Complaint TACHYCARDIA/ANXIETY Social History Functional Status Vital Signs Results Problems Encounter Diagnosis No relevant problems exist. Additional Problems Dyspnea Comment:Problem resolved by [facility] Workflow upon Discharge, Status: Resolved. Encounters Encounter Diagnosis No relevant problems exist. Plan of Care Procedures No relevant procedures performed. Immunizations No immunizations administered or ordered. Hospital Course Hospital Discharge Instructions Allergies, Adverse Reactions, Alerts This section is truck sales representative of the current allergy information, at [...]
--- OUTSIDE RECORDS SUMMARY | 2017-08-21 19:47 | External Medical Summary | Summary of Care ---
[...] (Allergy) Status: Active Procedures Procedure Dates Details BASIC METABOLIC PROFILE 1210 Ordered: 13-Jun-2016 LIPID PROFILE 1184 Ordered: 13-Jun-2016 Hep C Virus Antibody [id number] Ordered: 13-Jun-2016 Urinalysis, Reflex to Microscopic or Culture PRN [id number] Ordered: 13-Jun-2016 HEMOGRAM 7305 Ordered: 13-Jun-2016 Immunization Name Dates Details Immunizations [...] ChangesLisinopril 10 MG Oral Tablet - StartLabs/Procedures/Imaging BASIC METABOLIC PROFILE 1210; To be Done: 13 Jun 2016HEMOGRAM 7305; To be Done: 13 Jun 2016Hep C Virus Antibody [id number]; To be Done: 13 Jun 2016LIPID PROFILE 1184; To be Done: 13 Jun 2016Urinalysis, Reflex to Microscopic or Culture PRN [id number]; To be Done: 13 Jun 2016 Instructions Name Dates Details Instructions not documented Encounters Appointment; Beny Pratt M.D. On 13-Jun-2016 Encounter Diagnosis: Problem not documented 11:15
--- OUTSIDE RECORDS SUMMARY | 2017-08-21 19:47 | External Medical Summary ---
:1970 Author Name GENERATED, SYSTEM Care Team Providers Name Role Phone UNASSIGNED DOCTOR MD NEHA DOCTOR Primary Care Provider [phone] Reason For Visit Chief Complaint INJURY TO RIGHT PALM Social History Functional Status Vital Signs Results Problems Encounter Diagnosis No relevant problems exist. Additional Problems Dyspnea Comment:Problem resolved by [facility] Workflow upon Discharge, Status: Resolved. Encounters Encounter Diagnosis No relevant problems exist. Plan of Care Procedures No relevant procedures performed. Immunizations No immunizations administered or ordered. Hospital Course Hospital Discharge Instructions Allergies, Adverse Reactions, Alerts This section is retail service representative of the current allergy information, [...]
--- OUTSIDE RECORDS SUMMARY | 2017-08-21 19:47 | External Medical Summary ---
:1970 Author Name GENERATED, SYSTEM Care Team Providers Name Role Phone UNASSIGNED DOCTOR MD NEHA DOCTOR Primary Care Provider [phone] Reason For Visit Chief Complaint PRE EMPLOYMENT Social History Functional Status Vital Signs Results [...]
--- OUTSIDE RECORDS SUMMARY | 2017-08-21 19:47 | External Medical Summary | Summary of Care ---
:1970 Author Name Shayy Dhaliwal M.D. Address [address] [place], [place] [id number] Care Team Providers Name Role Phone Vikas Pratt M.D. Unavailable Unavailable Glenn Dhaliwal [...] Details Planned Observations Planned Goals not documented Interventions Provided Labs/Procedures/ImagingCBC w/ Auto Diff 7150; To be Done: 12 Feb 2017Comprehensive Metabolic Panel 1212; To be Done: 12 Feb 2017 Instructions Name Dates Details Instructions not documented Encounters Appointment; Beny Pratt M.D. On 26-Jul-2016 Encounter Diagnosis: Problem not documented 08:00 Appointment; Beny Pratt M.D. On 27-Jun-2016 Encounter Diagnosis: Problem not documented 09:00 Appointment; Beny Pratt M.D. On 13-Jun-2016 Encounter Diagnosis: Problem not documented 11:15
--- OUTSIDE RECORDS SUMMARY | 2017-08-21 19:47 | External Medical Summary | Summary of Care ---
[...] Procedures not documented Immunization Name Dates Details Immunizations not documented [...] >60 ml/min Range: >60 EST GFR, NON-AFR GUATEMALAN >60 ml/min Range: >60 Comments: EST GFR [...] LDL - CALCULATED 115 mg/dL Range: 0-130 14-Jun-2016 16:39 Hep C Virus Antibody [id number] Comments: Testing performed at : [facility]DA] [facility], [address] [place] [address], [place], [address], , Firer Kiln: VENKATESH Ocasio MD Fastin hours Hep C Virus Ab <0.1 s/co ratio Range: 0.0-0.9 Comments: Negative: < 0.8 Indeterminate: 0.8 - 0.9 Positive: > 0.9 The CDC recommends that a positive HCV antibody result be followed up with a HCV Nucleic Acid Amplification test ([id number]).----- Plan of Care Name Dates Details Planned Observations Planned Goals not documented Planned Encounters Appointment; Provider: Beny Pratt M.D. On 27-Jun-2016 09:00 Instructions Name Dates Details Instructions not documented Encounters Appointment; Beny Pratt M.D. On 13-Jun-2016 Encounter Diagnosis: Problem not documented 11:15
--- OUTSIDE RECORDS SUMMARY | 2017-08-21 19:47 | External Medical Summary ---
:1970 Author Name GENERATED, SYSTEM Care Team Providers Name Role Phone UNASSIGNED DOCTOR MD NEHA DOCTOR Primary Care Provider [phone] Reason For Visit Chief Complaint CHEST PAIN Social History Functional Status Vital Signs Results Problems Encounter Diagnosis No relevant problems exist. Additional Problems Dyspnea Comment:Problem resolved by So[facility] Workflow upon Discharge, Status: Resolved. Encounters Encounter Diagnosis No relevant problems exist. Plan of Care Procedures No relevant procedures performed. Immunizations No immunizations administered or ordered. Hospital Course Hospital Discharge Instructions Allergies, Adverse Reactions, Alerts This section is service center representative of the current allergy information, at [...]
--- OUTSIDE RECORDS SUMMARY | 2017-08-21 19:47 | External Medical Summary | Summary of Care ---
[...] Bipolar disorder (296.80, F31.9) Status: Active Low back pain (724.2, M54.5) Status: Active Hypertension, essential, benign (401.1, I10) Status: Active Low HDL (under 40) (272.5, E78.6) Status: Active Medications Name Dates Details DULoxetine [...] morning for BP Quantity: 1 Refills: 5 Beny Pratt M.D. Start 13-Jun-2016 Active 30 Tablet Bottle Nicotine 21 MG/24HR Transdermal Patch 24 Hour APPLY 1 PATCH DAILY DIRECTED. Quantity: 1 Refills: 1 Beny Pratt M.D. Start 27-Jun-2016 Active 28 Patch 24 Hour Box Ibuprofen 600 MG Oral Tablet TAKE 1 TABLET 3 TIMES DAILY WITH FOOD NEEDED. Quantity: 1 Refills: 1 Beny Pratt M.D. Start 27-Jun-2016 Active 30 [...] smoker Vital Signs Date Test Result Details 27-Jun-2016 09:00 BP Systolic 130 mm[Hg] Status: Comments: Location: ; Position: BP Diastolic 88 mm[Hg] Status: Comments: Location: ; Position: Heart Rate 84 /min Status: Comments: Location: ; Weight 218 lb Status: Body Mass Index Calculated 33.15 kg/m2 Status: Body Surface Area Calculated 2.12 m2 Status: 13-Jun-2016 11:14 BP Systolic 146 mm[Hg] Status: [...] >60 ml/min Range: >60 EST GFR, NON-AFR CROATIAN >60 ml/min Range: >60 Comments: EST GFR [...] 0-130 14-Jun-2016 16:39 Hep C Virus Antibody [id number] Comments: Testing performed at : [DA] [facility], [address] [place] [address], [place], [address], , Shredding Floor Equipment Operator: VENKATESH Ocasio MD Fastin hours Hep C Virus Ab <0.1 s/co ratio Range: 0.0-0.9 Comments: Negative: < 0.8 Indeterminate: 0.8 - 0.9 Positive: > 0.9 The CDC recommends that a positive HCV antibody result be followed up with a HCV Nucleic Acid Amplification test ([id number]).----- Plan of Care Name Dates Details Planned Observations Planned Goals not documented Planned Encounters Appointment; Provider: Beny Pratt M.D. On 28-Jul-2016 08:30 Interventions Provided Medication ChangesIbuprofen 600 MG Oral Tablet - StartLisinopril 10 MG Oral Tablet - RenewNicotine 21 MG/24HR Transdermal Patch 24 Hour - Start Instructions Name Dates Details Instructions not documented Encounters Appointment; Beny Pratt M.D. On 13-Jun-2016 Encounter Diagnosis: Problem not documented 11:15
--- OUTSIDE RECORDS SUMMARY | 2017-08-21 19:47 | External Medical Summary ---
:1970 Author Name GENERATED, SYSTEM Care Team Providers Name Role Phone UNASSIGNED DOCTOR MD NEHA DOCTOR Primary Care Provider [phone] Reason For Visit Chief Complaint LAC UPPER EXTREMITY Social History Functional Status Vital Signs Results Chemistry from 12/22/2016 11:25 AM*COCAINENEGATIVE (NEG <150 ) *PCPNEGATIVE (NEG <25 ) *CANNABINOIDSNEGATIVE (NEG <50 ) *BENZODIAZEINENEGATIVE (NEG <200 ) *METHAMPHETAMINE/AMPHETAMINENEGATIVE (NEG <500 ) *BARBITURATESNEGATIVE (NEG <200 ) *OPIATESNEGATIVE (NEG <300 )Chemistry from 12/22/2016 11:23 [id number] MMOL/L (136-145 MMOL/L) POTASSIUM3.6 MMOL/L (3.5-5.1 MMOL/L) UTDISGOF120 MMOL/L (98-107 MMOL/L) QQZ295.2 MMOL/L (21.0-32.0 MMOL/L) *ANION GAP9.8 MMOL/L (8.0-16.0 MMOL/L) BUN9 MG/DL (7-18 MG/DL) CREATININE0.82 MG/DL (0.70-1.30 MG/DL) *BUN/CREATININE RATIO11.0 (9.1-17.0 ) ICEXURB01 MG/DL (65-99 MG/DL) *GFR EST NON AFR MAURITANIAN>90 ML/MIN (Reference Range: not available) *GFR EST AFR AMER>90 ML/MIN (Reference Range: not available) CALCIUM9.1 MG/DL (8.5-10.1 MG/DL) BILIRUBIN TOTAL0.80 MG/DL (0.20-1.00 MG/DL) TOTAL PROTEIN7.8 GM/DL (6.4-8.2 GM/DL) ALBUMIN4.1 GM/DL (3.4-5.0 GM/DL) *GLOBULIN3.7 GM/DL H (2.3-3.5 GM/DL) *A/G RATIO1.1 MG/DL L (1.5-2.2 MG/DL) ALK PHOS94 U/L (46-116 U/L) ALT (SGPT)29 U/L (14-59 U/L) AST (SGOT)29 U/L (15-37 U/L) TSH0.474 UIU/ML (0.340-4.820 UIU/ML) ALCOHOL<0.003 GM/DL (Reference Range: not available) ACETAMINOPHEN<2 MCG/ML L (10-30 MCG/ML) SALICYLATE4.9 MG/DL (2.8-20.0 MG/DL)Hematology from 12/22/2016 11:23 AMWBC11.3 X10e3/UL H (3.6-11.2 X10e3/UL) RBC5.58 X10e6/UL (4.06-5.63 X10e6/UL) SNEGTBZBEW75.8 G/DL H (12.5-16.3 G/DL) GIXHYTSMJH13.9 % H (36.7-47.1 %) *MCV93.1 FL (80.0-100.0 FL) *MCH31.8 PG (27.0-33.0 PG) *MCHC34.2 G/DL (32.0-36.0 G/DL) *RDW13.4 % (12.3-17.0 %) *RDWSD43.8 (37.1-47.8 ) JIPHOZUR875 X10e3/UL (159-386 X10e3/UL) *MPV10.0 FL (7.4-10.4 FL) AUTOMATED DIFFPERFORMED (Reference Range: not available) SEGS68.9 % (Reference Range: not available) *JPGTLJAMJXS93.1 % (Reference Range: not available) *MONOCYTES8.8 % (Reference Range: not available) *EOSINOPHILS0.6 % (Reference Range: not available) *BASOPHILS0.6 % (Reference Range: not available) *ABSOLUTE NEUTROPHILS7.80 X10e3/UL (1.80-7.80 X10e3/UL) *ABSOLUTE LYMPHOCYTES2.40 X10e3/UL (1.00-3.00 X10e3/UL) *ABSOLUTE MONOCYTES1.00 X10e3/UL (0.30-1.00 X10e3/UL) *ABSOLUTE EOSINOPHILS0.10 X10e3/UL (0.00-0.50 X10e3/UL) *ABSOLUTE BASOPHILS0.10 X10e3/UL (0.00-0.20 X10e3/UL)Urinalysis from 12/22/2016 11 :25 AM*URINE COLORYELLOW (STRAW/YELL/DK YELL ) *URINE APPEARANCECLEAR (CLEAR ) URINE PH6.0 (5.0-8.0 ) URINE SPECIFIC GRAVITY<1.005 (<=1.005->=1.030 ) *URINE GLUCOSENEGATIVE MG/DL (NEGATIVE MG/DL) *URINE BILIRUBINNEGATIVE (NEGATIVE ) *URINE NGDDOPV90 MG/DL A (NEGATIVE MG/DL) *URINE BLOODNEGATIVE (NEGATIVE ) *URINE [...] Allergies, Adverse Reactions, Alerts This section is territory service representative of the current allergy information, [...]
--- OUTSIDE RECORDS SUMMARY | 2017-08-21 19:47 | External Medical Summary ---
:1970 Author Name GENERATED, SYSTEM Care Team Providers Name Role Phone UNASSIGNED DOCTOR MD OLIMPIA SOLOMON Primary Care Provider [phone] Reason For Visit Chief Complaint INSOMNIA Social [...] Allergies, Adverse Reactions, Alerts This section is traveling representative of the current allergy information, at [...]
--- OUTSIDE RECORDS SUMMARY | 2017-08-21 19:47 | External Medical Summary | Continuity of Care Document ---
:1970 Author Organization [facility] Allergies Active Description Code Type Severity Reaction Onset Reported/ Identified Relationship Clinical to Patient Status Yes No Known ZZ No N/A NKA 03/03/2014 Allergies Known Aller gies Medications There is no data. 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, DOCTOR disorder 12/30/2016 UNASSIGNED D G4700 Insomnia, unspecified DOCTOR, DOCTOR 12/30/2016 UNASSIGNED A [id number] Laceration without DOCTOR, DOCTOR foreign body of right hand, init encntr 12/30/2016 UNASSIGNED D [id number] Laceration of radial DOCTOR, DOCTOR artery at wrs/hnd lv of right arm, init 12/30/2016 UNASSIGNED D [id number] Oth foreign body or DOCTOR, DOCTOR object entering through skin, init 12/30/2016 UNASSIGNED D Y929 Unspecified place or DOCTOR, DOCTOR not applicable 12/30/2016 UNASSIGNED D Y939 Activity, unspecified DOCTOR, DOCTOR 12/30/2016 UNASSIGNED D Y999 Unspecified external DOCTOR, DOCTOR cause status 02/02/2017 UNASSIGNED D G4700 Insomnia, unspecified DOCTOR, DOCTOR 03/07/2017 JOSE SALTER [id number] Nicotine dependence, cigarettes, uncomplicated 03/07/2017 JOSE SALTER F251 Schizoaffective disorder, depressive type 03/07/2017 JOSE SALTER F419 Anxiety disorder, unspecified 03/07/2017 JOSE SALTER I10 Essential (primary) hypertension 03/07/2017 JOSE SALTER M069 Rheumatoid arthritis, unspecified 03/07/2017 JOSE SALTER [id number] Homicidal ideations 03/07/2017 JOSE SALTER [id number] Suicidal ideations Procedures Code Description Performed By Performed On A0425 11/25/2016 A0429 11/25/2016 A0425 12/17/2016 A0427 12/17/2016 A0425 12/22/2016 A0427 12/22/2016 A0425 01/23/2017 A0429 01/23/2017 Results Test Result Range CBC WITH PLATELET AND DIFFERENTIAL - 12/22/16 11:23 SEGS 68.9 % NRG *BASOPHILS 0.6 % NRG *EOSINOPHILS 0.6 % NRG AUTOMATED DIFF PERFORMED NRG *LYMPHOCYTES 21.1 % NRG *MONOCYTES 8.8 % NRG *ABSOLUTE BASOPHILS 0.10 10*3/uL 0.00-0.20 *ABSOLUTE EOSINOPHILS 0.10 10*3/uL 0.00-0.50 *ABSOLUTE LYMPHOCYTES 2.40 10*3/uL 1.00-3.00 *ABSOLUTE MONOCYTES 1.00 10*3/uL 0.30-1.00 *ABSOLUTE NEUTROPHILS 7.80 10*3/uL 1.80-7.80 MPV 10.0 fL 7.4-10.4 PLATELETS 169 10*3/uL 159-386 WBC 11.3 10*3/uL 3.6-11.2 RBC 5.58 4.06-5.63 HEMOGLOBIN 17.8 12.5-16.3 HEMATOCRIT 51.9 % 36.7-47.1 MCV 93.1 fL 80.0-100.0 MCH 31.8 pg 27.0-33.0 MCHC 34.2 32.0-36.0 RDW 13.4 % 12.3-17.0 RDWSD 43.8 37.1-47.8 COMPREHENSIVE METABOLIC PANEL - 12/22/16 11:23 CHLORIDE 100 mmol/L 98-107 BILIFUBIN TOTAL 0.80 0.20-1.00 TOTAL PROTEIN 7.8 6.4-8.2 ALBUMIN 4.1 3.4-5.0 *GLOBULIN 3.7 2.3-3.5 *A/G RATIO 1.1 1.5-2.2 ALK PHOS 94 U/L 46-116 ALT (SGPT) 29 U/L 14-59 AST (SGOT) 29 U/L 15-37 GFR ESTIMATION - 12/22/16 11:23 *GFR EST NON AFR TRISTANIAN >90 mL/min NRG *GRFA EST AFR AMER >90 mL/min NRG DRUG SCREEN PLASMA - 12/22/16 11:23 ALCOHOL <0.003 NRG ACETAMINOPHEN <2 10-30 SALICYLATE 4.9 2.8-20.0 TSH - 12/22/16 11:23 TSH 0.474 u[IU]/L 0.340-4.820 URINALYSIS (CULTURE PRN) - 12/22/16 11:25 *URINE APPEARANCE CLEAR CLEAR *URINE BILIRUBIN NEGATIVE NEGATIVE *URINE BLOOD NEGATIVE NEGATIVE *URINE GLUCOSE NEGATIVE NEGATIVE *URINE KETONES 15 NEGATIVE *URINE LEUKOCYTES NEGATIVE NEGATIVE *URINE NITRITES NEGATIVE NEGATIVE URINE PH 6.0 5.0-8.0 *URINE PROTEIN NEGATIVE NEGATIVE URINE SPECIFIC GRAVITY <1.005 <=1.005->=1.030 *URINE UROBILINOGEN 0.2 0.2-1.0 *URINE COLOR YELLOW STRAW/YELL/DK YELL UR DRUGS OF ABUSE SCREEN - 12/22/16 11:25 *COCAINE NEGATIVE NEG <150 *BARBITURATES NEGATIVE NEG <200 *BENZODIAZEINE NEGATIVE NEG <200 *AMPHETAMINE NEGATIVE NEG <500 *CANNABINOIDS NEGATIVE NEG <50 *OPIATES NEGATIVE NEG <300 *PCP NEGATIVE NEG <25 FECAL OCCULT BLOOD - 01/19/17 22:45 FECAL OCCULT BLOOD 1 (Hemoccult) POSITIVE NEGATIVE PROTHROMBIN TIME - 01/19/17 23:02 *INR 1.0 0.9-1.1 *PROTHROMBIN TIME 10.9 s 9.4-11.5 CBC WITH PLATELET AND DIFFERENTIAL - 01/19/17 23:03 SEGS 55.9 % NRG *BASOPHILS 0.8 % NRG *EOSINOPHILS 4.7 % NRG AUTOMATED DIFF PERFORMED NRG *LYMPHOCYTES 31.5 % NRG *MONOCYTES 7.1 % NRG *ABSOLUTE BASOPHILS 0.10 10*3/uL 0.00-0.20 *ABSOLUTE EOSINOPHILS 0.40 10*3/uL 0.00-0.50 *ABSOLUTE LYMPHOCYTES 2.60 10*3/uL 1.00-3.00 *ABSOLUTE MONOCYTES 0.60 10*3/uL 0.30-1.00 *ABSOLUTE NEUTROPHILS 4.60 10*3/uL 1.80-7.80 MPV 9.6 fL 7.4-10.4 PLATELETS 208 10*3/uL 159-386 WBC 8.3 10*3/uL 3.6-11.2 RBC 5.01 4.06-5.63 HEMOGLOBIN 15.4 12.5-16.3 HEMATOCRIT 45.7 % 36.7-47.1 MCV 91.2 fL 80.0-100.0 MCH 30.8 pg 27.0-33.0 MCHC 33.7 32.0-36.0 RDW 13.0 % 12.3-17.0 COMPREHENSIVE METABOLIC PANEL - 01/19/17 23:03 SODIUM 138 mmol/L 136-145 POTASSIUM 4.0 mmol/L 3.5-5.1 CHLORIDE 105 mmol/L 98-107 TCO2 26.2 mmol/L 21.0-32.0 *ANION GAP 6.8 mmol/L 8.0-16.0 BUN 8 7-18 CREATININE 0.93 0.70-1.30 *BUN/CREATININE RATIO 8.6 9.1-17.0 GLUCOSE 137 65-99 CALCIUM 8.6 8.5-10.1 BILIFUBIN TOTAL 0.20 0.20-1.00 TOTAL PROTEIN 6.6 6.4-8.2 ALBUMIN 3.5 3.4-5.0 *GLOBULIN 3.1 2.3-3.5 *A/G RATIO 1.1 1.5-2.2 ALK PHOS 132 U/L 46-116 ALT (SGPT) 33 U/L 14-59 AST (SGOT) 19 U/L 15-37 GFR ESTIMATION - 01/19/17 23:03 *GFR EST NON AFR TRISTANIAN >90 mL/min NRG *GRFA EST AFR AMER >90 mL/min NRG CBC WITH PLATELET AND DIFFERENTIAL - 01/23/17 05:37 SEGS 56.2 % NRG *BASOPHILS 0.8 % NRG *EOSINOPHILS 3.9 % NRG AUTOMATED DIFF PERFORMED NRG *LYMPHOCYTES 30.0 % NRG *MONOCYTES 9.1 % NRG *ABSOLUTE BASOPHILS 0.10 10*3/uL 0.00-0.20 *ABSOLUTE EOSINOPHILS 0.30 10*3/uL 0.00-0.50 *ABSOLUTE LYMPHOCYTES 2.40 10*3/uL 1.00-3.00 *ABSOLUTE MONOCYTES 0.70 10*3/uL 0.30-1.00 *ABSOLUTE NEUTROPHILS 4.40 10*3/uL 1.80-7.80 MPV 9.8 fL 7.4-10.4 PLATELETS 189 10*3/uL 159-386 WBC 7.9 10*3/uL 3.6-11.2 RBC 5.18 4.06-5.63 HEMOGLOBIN 16.7 12.5-16.3 HEMATOCRIT 48.4 % 36.7-47.1 MCV 93.5 fL 80.0-100.0 MCH 32.2 pg 27.0-33.0 MCHC 34.5 32.0-36.0 RDW 13.7 % 12.3-17.0 RDWSD 44.6 37.1-47.8 COMPREHENSIVE METABOLIC PANEL - 01/23/17 05:37 BILIFUBIN TOTAL 0.60 0.20-1.00 TOTAL PROTEIN 7.3 6.4-8.2 ALBUMIN 3.7 3.4-5.0 *GLOBULIN 3.6 2.3-3.5 *A/G RATIO 1.0 1.5-2.2 ALK PHOS 116 U/L 46-116 ALT (SGPT) 28 U/L 14-59 AST (SGOT) 19 U/L 15-37 GFR ESTIMATION - 01/23/17 05:37 *GFR EST NON AFR TRISTANIAN >90 mL/min NRG *GRFA EST AFR AMER >90 mL/min NRG TSH - 01/23/17 05:37 TSH 1.256 u[IU]/L 0.340-4.820 LITHIUM - 01/23/17 05:37 LITHIUM 0.3 mmol/L 0.6-1.2 DRUG SCREEN PLASMA - 01/23/17 05:37 ALCOHOL <0.003 NRG ACETAMINOPHEN <2 10-30 SALICYLATE 5.2 2.8-20.0 URINALYSIS (CULTURE PRN) - 01/23/17 05:50 *URINE APPEARANCE CLEAR CLEAR *URINE BILIRUBIN NEGATIVE NEGATIVE *URINE BLOOD NEGATIVE NEGATIVE *URINE GLUCOSE NEGATIVE NEGATIVE *URINE KETONES NEGATIVE NEGATIVE *URINE LEUKOCYTES NEGATIVE NEGATIVE *URINE NITRITES NEGATIVE NEGATIVE URINE PH 6.0 5.0-8.0 *URINE PROTEIN NEGATIVE NEGATIVE URINE SPECIFIC GRAVITY <1.005 <=1.005->=1.030 *URINE UROBILINOGEN 0.2 0.2-1.0 *URINE COLOR STRAW STRAW/YELL/DK YELL UR DRUGS OF ABUSE SCREEN - 01/23/17 05:50 *COCAINE NEGATIVE ng/mL NEG <150 *BARBITURATES NEGATIVE ng/mL NEG <200 *BENZODIAZEINE NEGATIVE ng/mL NEG <200 *AMPHETAMINE NEGATIVE ng/mL NEG <500 *CANNABINOIDS NEGATIVE NEG <50 *OPIATES NEGATIVE ng/mL NEG <300 *PCP NEGATIVE ng/mL NEG <25 CBC WITH PLATELET AND DIFFERENTIAL - 02/21/17 19:54 SEGS 63.1 % NRG *BASOPHILS 0.8 % NRG *EOSINOPHILS 2.0 % NRG AUTOMATED DIFF PERFORMED NRG *LYMPHOCYTES 29.3 % NRG *MONOCYTES 4.8 % NRG *ABSOLUTE BASOPHILS 0.10 10*3/uL 0.00-0.20 *ABSOLUTE EOSINOPHILS 0.20 10*3/uL 0.00-0.50 *ABSOLUTE LYMPHOCYTES 2.70 10*3/uL 1.00-3.00 *ABSOLUTE MONOCYTES 0.40 10*3/uL 0.30-1.00 *ABSOLUTE NEUTROPHILS 5.70 10*3/uL 1.80-7.80 MPV 9.6 fL 7.4-10.4 PLATELETS 232 10*3/uL 159-386 WBC 9.1 10*3/uL 3.6-11.2 RBC 5.47 4.06-5.63 HEMOGLOBIN 17.5 12.5-16.3 HEMATOCRIT 51.5 % 36.7-47.1 MCV 94.2 fL 80.0-100.0 MCH 32.0 pg 27.0-33.0 MCHC 33.9 32.0-36.0 RDW 14.6 % 12.3-17.0 RDWSD 48.6 37.1-47.8 COMPREHENSIVE METABOLIC PANEL - 02/21/17 19:54 BILIFUBIN TOTAL 0.50 0.20-1.00 TOTAL PROTEIN 8.1 6.4-8.2 ALBUMIN 3.9 3.4-5.0 *GLOBULIN 4.2 2.3-3.5 *A/G RATIO 0.9 1.5-2.2 ALK PHOS 103 U/L 46-116 ALT (SGPT) 34 U/L 14-59 AST (SGOT) 19 U/L 15-37 GFR ESTIMATION - 02/21/17 19:54 *GFR EST NON AFR TRISTANIAN >90 mL/min NRG *GRFA EST AFR AMER >90 mL/min NRG LITHIUM - 02/21/17 19:54 LITHIUM 0.2 mmol/L 0.6-1.2 TSH - 02/21/17 19:54 TSH 1.153 u[IU]/L 0.340-4.820 DRUG SCREEN PLASMA - 02/21/17 19:54 ALCOHOL <0.003 NRG ACETAMINOPHEN <2 10-30 SALICYLATE 5.4 2.8-20.0 URINALYSIS (CULTURE PRN) - 02/21/17 20:30 *URINE APPEARANCE CLEAR CLEAR *URINE BILIRUBIN NEGATIVE NEGATIVE *URINE BLOOD NEGATIVE NEGATIVE *URINE GLUCOSE NEGATIVE NEGATIVE *URINE KETONES NEGATIVE NEGATIVE *URINE LEUKOCYTES NEGATIVE NEGATIVE *URINE NITRITES NEGATIVE NEGATIVE URINE PH 6.0 5.0-8.0 *URINE PROTEIN NEGATIVE NEGATIVE URINE SPECIFIC GRAVITY <1.005 <=1.005->=1.030 *URINE UROBILINOGEN 0.2 0.2-1.0 *URINE COLOR YELLOW STRAW/YELL/DK YELL UR DRUGS OF ABUSE SCREEN - 02/21/17 20:30 *COCAINE NEGATIVE ng/mL NEG <150 *BARBITURATES NEGATIVE ng/mL NEG <200 *BENZODIAZEINE NEGATIVE ng/mL NEG <200 *AMPHETAMINE NEGATIVE ng/mL NEG <500 *CANNABINOIDS NEGATIVE NEG <50 *OPIATES NEGATIVE ng/mL NEG <300 *PCP NEGATIVE ng/mL NEG <25 GLUCOSE (FASTING) - 02/22/17 07:15 GLUCOSE (FASTING) 94 65-99 Encounters ACCT No. Visit Discharge Status Pt. Type Provider Facility Loc./Unit Complaint Date/Time [id number] 11/19/2013 11/19/2013 CLS Outpatie 07:31:00 23:59:59 nt [id number] 11/12/2013 11/12/2013 CLS Outpatie 11:37:00 23:59:59 nt [id number] 11/07/2013 11/07/2013 CLS Outpatie 07:47:00 23:59:59 nt [id number] 10/29/2013 10/29/2013 CLS Outpatie 07:58:00 23:59:59 nt [id number] 01/02/2014 01/02/2014 CLS Emergenc Ben SOLOMON, [facility] 434 13:33:00 23:59:59 y [facility] [id number] 01/26/2014 01/26/2014 CLS Outpatie ANTHONY 00:00:00 23:59:59 nt AURELIO CALI [id number] 02/21/2017 02/26/2017 DIS Inpatien JOIE, <PV2.3.2& 808 21:53:00 15:19:13 t SHEAN gt;Schizoaff ective disorder, depressive type</PV2 .3.2>< PV2.3.2>U NSPECIFIED SCHIZOPHRENI A</PV2.3. 2><PV2 .3.2>Schi zoaffective disorder, depressive type</PV2 .3.2>< PV2.3.2>S uicidal ideations&lt ;/PV2.3.2&gt ;<PV2.3.2 >Homicida l ideations&lt ;/PV2.3.2&gt ;<PV2.3.2 >Anxiety disorder, unspecified& lt;/PV2.3.2& gt;<PV2.3 .2>Nicoti ne dependence, cigarettes, uncomplicate d</PV2.3. 2><PV2 .3.2>Esse ntial (primary) hypertension </PV2.3.2 ><PV2. 3.2>Rheum atoid arthritis, unspecified& lt;/PV2.3.2& gt; [id number] 02/10/2017 02/11/2017 DIS Emergenc CHRISTINA, RT ARM 035 20:34:00 04:56:07 y EKBROOKI A INJURY [id number] 01/23/2017 01/25/2017 DIS Outpatie UNASSIGNED <PV2.3.2& 740 04:45:00 14:13:01 nt DOCTOR, gt;Insomnia, DOCTOR unspecified& lt;/PV2.3.2& gt;<PV2.3 .2>INSOMN IA</PV2.3 .2><PV 2.3.2>Ins omnia, unspecified& lt;/PV2.3.2& gt; [id number] 01/23/2017 01/24/2017 DIS Emergenc THOMPSON, INSOMNIA 737 05:00:00 03:49:51 y ROCIO Malhotra [id number] 01/19/2017 01/23/2017 DIS Outpatie UNASSIGNED RECTAL 302 22:15:00 13:55:22 nt DOCTOR, BLEEDING DOCTOR [id number] 01/19/2017 01/20/2017 DIS Emergenc CESAR, RECTAL 665 22:36:00 02:44:02 y THERESA BLEEDING [id number] 12/22/2016 12/25/2016 DIS Outpatie UNASSIGNED <PV2.3.2& 631 09:26:00 11:11:44 nt DOCTOR, gt;Laceratio DOCTOR n without foreign body of right hand, init encntr</P V2.3.2>&l t;PV2.3.2&gt ;INJURY TO RIGHT PALM</PV2 .3.2>< PV2.3.2>L aceration of radial artery at wrs/hnd lv of right arm, init</PV2 .3.2>< PV2.3.2>O th foreign body or object entering through skin, init</PV2 .3.2>< PV2.3.2>U nspecified place or not applicable&l t;/PV2.3.2&g t;<PV2.3. 2>Activit y, unspecified& lt;/PV2.3.2& gt;<PV2.3 .2>Unspec ified external cause status</P V2.3.2>&l t;PV2.3.2&gt ;Schizoid personality disorder< /PV2.3.2> <PV2.3.2& gt;Insomnia, unspecified& lt;/PV2.3.2& gt; [id number] 12/22/2016 12/23/2016 DIS Emergenc RANDALL BUCK LAC UPPER 397 09:40:00 01:10:41 y EXTREMITY [id number] 12/17/2016 12/18/2016 DIS Outpatie UNASSIGNED <PV2.3.2& 963 13:36:00 16:15:30 nt DOCTOR, gt;Tachycard DOCTOR ia, unspecified& lt;/PV2.3.2& gt;<PV2.3 .2>TACHYC ARDIA/ANXIET Y</PV2.3. 2><PV2 .3.2>Tach ycardia, unspecified& lt;/PV2.3.2& gt;<PV2.3 .2>Anxiet y disorder, unspecified& lt;/PV2.3.2& gt;<PV2.3 .2>Other conduct disorders&lt ;/PV2.3.2&gt ; [id number] 12/17/2016 12/18/2016 DIS Emergenc VENTURAMKA, CHEST PAIN 337 13:52:00 02:10:30 y VIBHA [id number] 11/25/2016 11/27/2016 DIS Outpatie UNASSIGNED <PV2.3.2& 430 16:51:00 13:20:51 nt DOCTOR, gt;Headache& DOCTOR lt;/PV2.3.2& gt;<PV2.3 .2>CHRONI C RHEUMATOID ARTHRITIS PAIN</PV2 .3.2>< PV2.3.2>H EADACHE</ PV2.3.2>& lt;PV2.3.2&g t;Headache&l t;/PV2.3.2&g t;<PV2.3. 2>Other chronic pain</PV2 .3.2> [id number] 11/25/2016 11/26/2016 DIS Emergenc FLAQUITO GUERRERO 411 17:26:00 06:19:45 y THERESA [id number] 02/22/2016 02/23/2016 DIS Outpatie MEHNAZ PRE 178 10:50:00 03:30:00 rubi SHIPLEY [id number] 10/14/2015 10/14/2015 DIS Emergenc FAILKIZZY, 294 11:51:00 22:29:05 donna Apodaca
--- OUTSIDE RECORDS SUMMARY | 2017-08-21 19:47 | External Medical Summary ---
:1970 Author Name GENERATED, SYSTEM Care Team Providers Name Role Phone UNASSIGNED DOCTOR MD NEHA DOCTOR Primary Care Provider [phone] Reason For Visit Chief Complaint RECTAL BLEEDING [...] Allergies, Adverse Reactions, Alerts This section is sales representative womens health of the current allergy information, at the [...]
[2017-08-21] MEDS ORDERED: NS 1,000 ML IV ONE (19:50)
[2017-08-21] MEDS ORDERED: ACETAMINOPHEN 650 MG SUPPOSITORY PR PRN (21:49)
[2017-08-21] MEDS ORDERED: HYDROCODONE/APAP 5mg/325mg TABLET PO PRN (21:49)
[2017-08-21] MEDS ORDERED: ONDANSETRON 4 MG/2 ML INJECTION IVP PRN (21:49)
[2017-08-21 21:51] VITALS: BMI 34.4
[2017-08-21] MEDS: NS 1,000 ML IV SCH (21:55)
[2017-08-21] MEDS ORDERED: FALL RISK - PHARMACY CONSULT XX ONE (22:06)
[2017-08-21] MEDS: LAMOTRIGINE 100 MG TABLET PO SCH (22:22)
[2017-08-21] MEDS: PANTOPRAZOLE 40 MG INJECTION IVP SCH (22:22)
[2017-08-21] MEDS: ENOXAPARIN 40 MG/0.4 ML INJECTION SQ SCH (22:22)
--- NOTE | 2017-08-21 22:52 | History & Physical Report ---
History of Present Illness Date: 08/22/17 Chief complaint: overdose seroquel HPI: This is a very pleasant 47 y/o male with severe schizoaffective disorder. He has been hospitalized @ [facility] at least 2 times this past year. Most recently was in for 3 months and discharged to longterm in [place] in June. The patient has constant auditory hallucinations. Tonight they were telling him that he wasn't worth being alive. He got very upset with the constant voices and wanted to end the voices by overdosing on his mediations. He is on multiple meds but it is determined by ED that what he took was Seroquel. He presented to the ED within 30 min of bolus ingestion and was treated with activated charcoal. He was watched in the ED for about 2 hours with his only findings being a mild tachyardia. He is now to be admitted for medical clearance prior to psychiatric evaluation. Review of Systems Review of systems: no headache, no change in vision, no neck or jaw pain, no chest pain, occasional cough, non productive, no heart palpitations, no abdomen pain, no nausea or vomitng, no change in bm, no change in meds recently, no change in activities, no new stressors 12 point RoS otherewise negative except for outlined above. Past Medical History Patient Stated Medical History Dementia Yes: Possible Hypertension Yes Gastroesophageal Reflux Yes Disease Other Musculoskeletal Yes: RA Depression Yes Paranoid Disorder Yes Schizophrenia Yes: hears voices, has dellusions Other Behavioral Health Yes: suicidal ideation Surgical History: colonoscopy only x 2 Family History Updates: unkown at this time, with psych diseaase , not reliable information to a degree - Social History Smoking status: Current every day smoker Medications Home Medications Medication Instructions Recorded Confirmed Type Benztropine Mesylate 0.5 mg PO BID 08/21/17 08/21/17 History Cholecalciferol (Vitamin D3) 1,000 unit PO DAILY 08/21/17 08/21/17 History [Vitamin D3] Cyanocobalamin (Vitamin B-12) 1,000 mcg PO DAILY 08/21/17 08/21/17 History [Vitamin B-12] Lamotrigine [Lamictal] 100 mg PO BID 08/21/17 08/21/17 History [place] Carbonate [[place] 450 mg PO DAILY 08/21/17 08/21/17 History Carbonate ER] Methocarbamol [Robaxin] 500 mg PO QID PRN 08/21/17 08/21/17 History Quetiapine [Seroquel] 100 mg PO HS 08/21/17 08/21/17 History hydrOXYzine pamoate [Vistaril] 1 cap PO BID 08/21/17 08/21/17 History lamoTRIgine [Lamotrigine] 25 mg PO BID 08/21/17 08/21/17 History Allergies Allergy/AdvReac Type Severity Reaction Status Date / Time No Known Allergies Allergy Verified 08/21/17 20:00 Exam Vital Signs: Temperature 98.6 F 08/21/17 21:48 Pulse Rate 106 H 08/21/17 22:15 Respiratory Rate 18 08/21/17 22:15 Blood Pressure 124/80 08/21/17 22:15 Pulse Oximetry 97 08/21/17 22:15 Telemetry Rhythm: Sinus Rhythm, Sinus Tachycardia Height/Weight/BMI: Height 1.73 m Weight 102.7 kg Body Mass Index 34.4 - Constitutional Present: mild distress, well nourished, well developed, obese, cooperative. Absent: agitated, somnolent, obtunded - Routine HEENT Exam Head: Present: normocephalic, atraumatic Eye: Present: EOMI, conjunctivae pink ENT: Present: mucous membranes moist - Routine Neck Exam Present: supple, full ROM - Routine Respiratory Exam Present: CTA bilaterally. Absent: respiratory distress, wheezes - Routine Cardiovascular Exam Present: RRR, no murmur - Routine Abdominal Exam Present: soft, normoactive bowel sounds, non distended - Routine Extremities Exam Present: full ROM. Absent: no edema - Routine Back/Spine/Pelvis Exam Back/Spine: Present: full ROM - Routine Skin Exam Present: intact - Routine Neurological Exam Present: alert, oriented X3, motor deficit, moving all extremities, normal tone , vision grossly intact - Routine Psychiatric Exam Comments: patient with actually normal affect, reasonable eye contact, continues to hear voices, seems to have intact thought processes, higher functions appear intact Results - Labs CBC & Chem 7: 08/22/17 04:48 08/22/17 04:48 Assessment and Plan (1) Suicide attempt by multiple drug overdose Current visit: Yes Status: Acute (2) Schizophrenia Current visit: Yes Status: Acute (3) Tobacco abuse Current visit: Yes Status: Acute Assessment and Plan: 1. overdose seroquel acute POA: of some slight concern is that he has access to other meds. will check lithium level,, UDS appreicated, monitor in icu, choarcoal in ed, fluids continued. repeat labs in the am. 2. suicide attempt acute POA: suicide precautions. once medically stable will proceed with psychiatric eval 3. schizophrenia acute / chronic POA: continues to hear voices. on multile disease modifying meds. for now will monitor 4. hx of Rhuematoid arthritis: to be aware of 5. GERD chronic POA: PPI 6. DVT ppx; SCd, lovenox DVT Prophylaxis: SCD's, Lovenox GI Prophylaxis: Protonix Resuscitation Status: Full Code - Time spent with patient Time with patient PN: 30 minutes - Physician Narrative Physician: Tiffanie Mcbride MD Narrative: Date: 08/22/17 Time: 1300 Please see history update added as an addendum (below) by Jennifer Brown APRN this morning. I subsequently saw Mr. Veloz in his room at approximately 11 AM at which time he was pacing with stable gait. He was calmer than earlier in the morning and did not wish to discuss the events that led to his hospitalization but questioned why psychiatry had any right to make decisions regarding his care. He denied nausea, palpitations, or dyspnea. He reported minor weakness in the proximal thigh muscles but otherwise reported no muscle pain or spasm. He permitted limited examination unwilling me to listen to his lungs which were clear, cardiac rhythm was regular with normal S1 and S2, and abdomen was benign. Facial structures were symmetric and eye movements full. No tremor was evident by observation and the patient had symmetric movement of all extremities but power was not formally assessed. [place] level on admission was elevated at 1.5; level was recently checked at [facility] on 07/26-0.3, and on 08/14-0.39. [place] reportedly being titrated off. Will attempt to clarify with patient if any lithium was ingested acutely. Recheck lithium level now. Last QTc interval at 8 AM was 0.475 with heart rate of approximately 90-patient subsequently has removed telemetry. Heart rate consistently sinus rhythm with normal rate prior to that time. Medically stable provided lithium level is not rising. [facility] to evaluate for inpatient psychiatric options. Hospital Course Summary Disclaimer: The visit summary below is not to be considered part of the above Progress Note. Addendum entered and electronically signed by Jennifer Brown APRN 08/22/17 08: 50: Reuben Veloz is a 47 y/o male w/ a hx of schizophrenia, initially dx as psychosis in 1993. For the last 18 mos he's been hearing a constant barrage of negative voices - some tell him to hurt women, others tell him he's not a good [place], and the ones last night told him to overdose on Seroquel and walked him through the process, only to be stopped by another voice. He estimates that he took about 1100 mg of Seroquel last night. During conversation, he points his finger toward the wall and raises his voice asking the voice to stop making accusations. He states the whole world is collapsing around him. He has a hx of 2 suicide attempts while in custodial between the years of 1995 - 1997 by hanging himself with a bedsheet. He became angry at one voice telling him he's a predator and another voice telling him he's a bad person, and removed his IV in his right forearm. He spent nearly all of 2017 in [place] and feels worse every time he gets out. Reports that he's had recent med changes per psych at - trying to get lithium out of his system and Seroquel. The one med that seems to work is Invega, which was given the end of 2013 while in [place]. He states he is intolerant of Haldol and no other medications work quickly enough to break the cycle. PMH: RA, HTN, schizophrenia Sx: colonoscopy x2 FH: Father was diabetic, in 1979 unknown causes; mother is diabetic but he doesn't know much about her medical hx (doesn't talk to her much). Denies psychiatric family hx. SH: remote hx of marijuana, quit at age 21; smokes 1.5 ppd cigs; no EtOH. PCP - Francisco Javier Jones ROS: stiff and sore from RA; dry mouth; right earache; no headache; no sinus drainage/allergies; c/o sore throat & trouble swallowing; no cough; no chest pain or dyspnea; feels weak in arms and legs (legs > arms) and c/o dizziness; no abd pain, n/v/d/c; no urinary problems; dry skin to left wrist; no leg swelling; + swollen neck glands Exam: Gen: agitated at times; A&O x3 Psych: talks/mumbles to voices frequently; changes subjects frequently but answers questions appropriately; uses profanities when talking to the voices Neuro: CN grossly intact; no focal deficits; [place]; pupils equal & reactive HEENT: sclera anecteric, noninjected; mild cerumen both ears; TM clear b/l; pharygneal erythema and extremely dry mucous membranes; minimal cervical lymphadenopathy CV: RRR, slightly tachycardic Lungs: CTAB Abdomen: decreased bowel sounds; soft, nontender Ext: No edema; distal pulses 2/4 Impression Suicide attempt by seroquel ingestion elevated lithium level Hypernatremia, POA Psychosis, hx schizophrenia RA Xerostomia HTN - no meds Plan Consult psych; provide safe environment. Consult case mgt to determine psych placement needs. Encourage water intake d/t hypernatremia. Will discuss further with Dr. Mcbride.
[2017-08-22 07:04] VITALS: O2SAT 98
[2017-08-22] MEDS: BENZTROPINE 1 MG TABLET PO SCH ×2 (07:05→08:05)
[2017-08-22] MEDS: NS 1,000 ML IV SCH (08:01)
[2017-08-22] MEDS: ENOXAPARIN 40 MG/0.4 ML INJECTION SQ SCH (08:04)
[2017-08-22] MEDS: LAMOTRIGINE 100 MG TABLET PO SCH (08:05)
[2017-08-22] MEDS ORDERED: ENOXAPARIN 40 MG/0.4 ML INJECTION SQ SCH (09:00)
[2017-08-22] MEDS ORDERED: PANTOPRAZOLE 40 MG INJECTION IVP SCH (09:00)
[2017-08-22] MEDS ORDERED: LITHIUM CARBONATE 150 MG CAPSULE PO SCH (09:00)
[2017-08-22] MEDS ORDERED: HydrOXYzine 50 MG TABLET PO SCH (14:00)
--- NOTE | 2017-08-22 16:36 | Discharge Summary ---
Discharge Information Date of admission: 08/21/17 21:41 Anticipated date of discharge: 08/22/17 Attending Physician: Tiffanie Mcbride MD Primary care physician: Loan Jones APRN Consults: Sherry Hein Screen - Discharge Diagnosis (1) Suicide attempt by multiple drug overdose Status: Acute (2) Schizophrenia Status: Acute (3) Auditory hallucinations Status: Acute Suicide attempt by seroquel/soma ingestion Auditory hallucinations Hypernatremia, POA. resolved Psychosis, hx schizophrenia RA Xerostomia HTN - no meds - Laboratory Labs: Admission sodium 145 improving on the date of discharge as noted below. Otherwise admission labs were notable only for glucose of 134. Remainder of comprehensive metabolic panel and CBC were normal. TSH 1.36 [place] level on admission 1.5 but repeated 0.3 prior to discharge Urine drug screen positive for tricyclics, negative for drugs of abuse. Salicylates, acetaminophen, and alcohol nondetectable. 08/22/17 04:48 08/22/17 13:44 History of Present Illness HPI: This is a very pleasant 47 y/o male with severe schizoaffective disorder. He has been hospitalized @ [facility] at least 2 times this past year. Most recently was in for 3 months and discharged to senior living in [place] in June. The patient has constant auditory hallucinations. Tonight they were telling him that he wasn't worth being alive. He got very upset with the constant voices and wanted to end the voices by overdosing on his mediations. He is on multiple meds but it is determined by ED that what he took was Seroquel. He presented to the ED within 30 min of bolus ingestion and was treated with activated charcoal. He was watched in the ED for about 2 hours with his only findings being a mild tachyardia. He is now to be admitted for medical clearance prior to psychiatric evaluation. Emergency room records indicate patient took 1100 mg of Seroquel and that he additionally took approximately 5 g of Soma. Patient denies taking any lithium in excess of scheduled dose. Hospital Course This is a general summary of the patient's hospital course. For more details refer to the complete medical record. Hospital course: Mr. Veloz was hospitalized in the ICU. Urine drug screen was obtained to exclude additional ingestion which was excluded. Initial lithium level suggested elevation although when repeated the level was 0.3 consistent with recent outpatient values of 0.30 and 0.39 in July 2017. The patient continued to have auditory hallucinations in the ICU and argued with the voices intermittently; he reported 1 voice told him to take Seroquel and another told him to stop prior to admission. Hospital course was otherwise uncomplicated; he was in SR throughout time in the ICU. Blood pressures are typically well controlled although occasionally when anxious diastolic pressure ran mid 90s to 100. The patient disconnected his telemetry leads and pulled his IV out on the morning of 08/22 but later allowed telemetry to be resumed. Patient was assessed by [facility] and it was recommended that he return to [facility] for additional inpatient psychiatric care and stabilization. Dr. Self except patient for transfer later in the day and arrangements for secure transportation were coordinated. The patient did not complain of any physical concerns throughout the day but described anxiety and frustration that people were talking about him. Seroquel was held following admission to the hospital; his medication list reports he is on Robaxin which was continued at discharge but he did not receive any muscle relaxant while hospitalized. Patient did not address the reported Soma overdose as described by the ER. He has recently been started on a nonsteroidal help with management of joint pain however it's unclear which anti-inflammatory was initiated. Patient was felt medically stable for transfer. Time spent with patient: discharge greater than 30 minutes Discharge Plan - Med Rec/Dispo Referrals/Follow Up: Loan Jones APRN [Family Provider] - (on return to [place]) Prescriptions: Continue lamoTRIgine [Lamotrigine] 25 mg PO BID Lamotrigine [Lamictal] 100 mg PO BID Benztropine Mesylate 0.5 mg PO BID Cyanocobalamin (Vitamin B-12) [Vitamin B-12] 1,000 mcg PO DAILY Methocarbamol [Robaxin] 500 mg PO QID PRN PRN Reason: Prn Orders [place] Carbonate [[place] Carbonate ER] 450 mg PO DAILY hydrOXYzine pamoate [Vistaril] 1 cap PO BID Cholecalciferol (Vitamin D3) [Vitamin D3] 1,000 unit PO DAILY Discontinued Quetiapine [Seroquel] 100 mg PO HS - Disposition 65 To Psych Hosp/Unit
[2017-08-22 17:23] VITALS: TEMP 98.5
[2017-08-22] MEDS: PANTOPRAZOLE 40 MG INJECTION IVP SCH (17:55)
[2017-08-22 19:17] VITALS: BP 157/101; PULSE 94; RESP 29
== END 2017-08-22 19:08 | DRG 918 ==
LOC: ED 19:38 → CCU 21:41
PROVIDERS: ADMIT Emergency Medicine; ATTEND Internal Medicine